=== PATIENT | male | born 1935 | race Caucasian/White ===

== ENCOUNTER 2022-01-19 23:58 | Emergency (ER) | payer OTHER ==
[~2022-01-19] VITALS: Ht 167.6 cm; Wt 63.3 kg
[2022-01-20] MEDS ORDERED: OXYMETAZOLINE HCL 0.05 % NASAL SPRAY 15ML EACHNOSTRI ONE (00:15)
[2022-01-20 01:03] LABS: Basophils # (auto) 0.1 10 ^3/uL (0-0.2); Basophils % (auto) 1.1 % (0.0-2.0); Eosinophils # (auto) 0.2 10 ^3/uL (0-0.8); Hematocrit 46.1 % (41.0-53.0); Hemoglobin 15.7 g/dL (13.5-17.5); Lymphocytes # (auto) 0.4 10 ^3/uL (0.4-5.4); Lymphocytes % (auto) 8.2 % (10.0-50.0); Mean Corpuscular Volume 96.9 fL (80.0-100.0); Monocytes # (auto) 0.7 10 ^3/uL (0-1.3); Monocytes % (auto) 13.6 % (0.0-12.0); Neutrophils % (auto) 74.1 % (37.0-80.0); Nucleated Red Blood Cells % 0.1 %; Red Blood Cells 4.75 10^6/uL (4.5-5.90); White Blood Cell 5.4 10^3/uL (4.4-10.8)
[2022-01-20 01:21] LABS: Albumin 3.4 g/dL (3.4-5.0); Calcium 9.2 mg/dL (8.5-10.1)
[2022-01-20 01:24] LABS: BUN/Creatinine Ratio 19.5
[2022-01-20 01:27] LABS: Bilirubin, Total 0.5 mg/dL (0.2-1.0); Total Protein 7.1 g/dL (6.4-8.2)
[2022-01-20 02:43] LABS: INR 4.17 (0.9-1.15)
[2022-01-20 05:21] VITALS: BP 118/74
== END 2022-01-20 05:42 | disposition home or self-care (01) ==
LOC: EDUNIT# 23:58 → EDSEX 23:58 → EDBD 23:58 → ER 23:58
DX: R04.0 Epistaxis (principal); R79.0 Abnormal level of blood mineral; I10 Essential (primary) hypertension
CPT/HCPCS: 36415; 80053; 85025; 85610

== ENCOUNTER 2022-02-07 16:42 | Emergency (ER) | payer OTHER ==
[~2022-02-07] VITALS: Ht 160 cm; Wt 63.6 kg
[2022-02-07 18:28] LABS: Urine Bacteria NONE SEEN /hpf (None Seen); Urine Blood Negative /uL (Negative); Urine Hyaline Cast FEW /lpf (0 - 2); Urine Specific Gravity 1.008 (1.001-1.035); Urine WBC 1 /hpf (0 - 3)
[2022-02-07 19:42] LABS: Basophils # (auto) 0.1 10 ^3/uL (0-0.2); Basophils % (auto) 0.6 % (0.0-2.0); Eosinophils # (auto) 0.1 10 ^3/uL (0-0.8); Eosinophils % (auto) 1.6 % (0.0-7.0); Hematocrit 47.5 % (41.0-53.0); Hemoglobin 15.2 g/dL (13.5-17.5); Lymphocytes # (auto) 0.7 10 ^3/uL (0.4-5.4); Lymphocytes % (auto) 9.2 % (10.0-50.0); Mean Corpuscular Hemoglobin 31.6 pg (28.0-32.0); Mean Corpuscular Volume 98.9 fL (80.0-100.0); Monocytes # (auto) 0.9 10 ^3/uL (0-1.3); Monocytes % (auto) 11.5 % (0.0-12.0); Neutrophils # (auto) 6.2 10 ^3/uL (1.6-8.6); Neutrophils % (auto) 77.1 % (37.0-80.0); Nucleated Red Blood Cells % 0.1 %; Red Blood Cells 4.81 10^6/uL (4.5-5.90); Red Cell Distribution Width 14.5 % (11.8-14.3)
[2022-02-07 19:56] LABS: Albumin 3.5 g/dL (3.4-5.0); BUN/Creatinine Ratio 17.7; Calcium 9.2 mg/dL (8.5-10.1); Magnesium 2.3 mg/dL (1.6-2.6); Potassium 3.8 mmol/L (3.5-5.1)
[2022-02-07 19:59] LABS: Bilirubin, Total 0.7 mg/dL (0.2-1.0); Total Protein 7.1 g/dL (6.4-8.2)
[2022-02-08 05:55] VITALS: BP 126/72
== END 2022-02-08 05:55 | disposition home or self-care (01) ==
LOC: EDSEX 16:42 → EDBD 16:42 → EDSEX 16:44 → ER 16:44
DX: R06.02 Shortness of breath (principal); I10 Essential (primary) hypertension
CPT/HCPCS: 36415; 71045; 80053; 81001; 83735; 83880; 84484; 85025; 85379; 93005

== ENCOUNTER 2023-07-12 11:50 | Emergency (ER) | payer OTHER ==
[~2023-07-12] VITALS: Ht 170.2 cm; Wt 78.0 kg
[2023-07-12] MEDS ORDERED: ONDANSETRON HCL 4 MG/2 ML VIAL IV ONE (13:00)
[2023-07-12] MEDS ORDERED: MORPHINE SULFATE 4 MG/ML SYR/VIAL IV ONE (13:00)
[2023-07-12 17:57] VITALS: BP 126/72; TEMP 98
[2023-07-12 18:20] VITALS: PULSE 98; RESP 16; O2SAT 97
== END 2023-07-12 17:04 | disposition short-term general hospital (02) ==
LOC: EDBD 11:50 → ER 11:50
DX: S82.201A Unspecified fracture of shaft of right tibia, initial encounter for closed fracture (principal); M25.461 Effusion, right knee; I10 Essential (primary) hypertension; I48.91 Unspecified atrial fibrillation; Z95.0 Presence of cardiac pacemaker; Z88.2 Allergy status to sulfonamides; W18.39XA Other fall on same level, initial encounter; Y93.89 Activity, other specified; Y92.89 Other specified places as the place of occurrence of the external cause; Y99.8 Other external cause status
CPT/HCPCS: 73090; 73552; 73590; 73630; 73700; 96374; 96375; 99285; J2270; J2405

== ENCOUNTER 2024-06-25 17:17 | Inpatient (IN) | payer OTHER, MEDICAID ==
[~2024-06-25] VITALS: Ht 175.3 cm; Wt 59.3 kg
[2024-06-25 17:45] VITALS: PULSE 98; RESP 18; O2SAT 95
--- NOTE | 2024-06-25 18:56 | ED.PDOC ---
History of Present Illness HPI Comments 88 y/o F is BIBA for c/o right shoulder pain and left forearm cut wound s/p mechanical fall, today. Patient endorses on tripping falling onto her right shoulder from a ground level height, without any prior symptoms or additional following injuries. She denies any headache, weakness, numbness, tingling, or o ther associated symptoms or modifiers at this time. Chief Complaint: Fall Injury Time Seen by MD: 18:30 Primary Care Provider: UNKNOWN Reviewed Notes: Nurses Notes, Medications, Allergies Allergies: Uncoded Allergies: SULFA (Allergy, Unknown, 05/21/14) Information Source: Patient, Emergency Med Personnel Mode of Arrival: EMS Severity: Moderate Timing: Hours Duration: Since onset Prehospital treatment: 12 Lead EKG, Travel Pt, Pain Meds (fentanyl), Other (zofran ) Past Medical History PAST MEDICAL HISTORY: AFIB, HTN Surgical History: Pacemaker Family History Family History: Reviewed,noncontributory to illness Social History Smoker: Non-Smoker Alcohol: Denies ETOH Use Drugs: Denies Drug Use Lives In: Home Musculoskeletal: reports: others (right shoulder pain ) Integumetry: reports: wounds (cut wound left forearm ) All Other Systems: Reviewed and Negative (negative unless otherwise stated above or in HPI) Physical Exam General Appearance: No Apparent Distress, Normal HEENT: Normal ENT Inspection, Pharynx Normal, TMs Normal Neck: Full Range of Motion, Non-Tender, Normal, Normal Inspection Respiratory: Chest Non-Tender, Lungs Clear, No Accessory Muscle Use, No Respiratory Distress, Normal Breath Sounds Cardiovascular: No Edema, No JVD, No Murmur, No Gallop, Normal Peripheral Pulses, Regular Rate/Rhythm Breast Exam: Deferred Gastrointestinal: No Organomegaly, Non Tender, No Pulsatile Mass, Normal Bowel Sounds, Soft Genitalia: Deferred Pelvic: Deferred Rectal: Deferred Extremities: Decreased range of motion (right shoulder ), No calf tenderness, Normal capillary refill, Normal inspection, No pedal edema, Tender (right shoulder) Musculoskeletal : Apperance: Normal Neurologic: Alert, fall intern II-XII nml as Tested, No Motor Deficits, Normal Affect, Normal Mood, No Sensory Deficits Cerebellar Function: Normal Reflexes: Normal Skin: Dry, Normal Color, Warm, Wounds (skin avulsion on left forearm ) Lymphatic: No Adenopathy Was a procedure done? Was a procedure done?: No Differential Dx Considerations may include: fractures, contusions, dislocation, sprain X-Ray, Labs, Meds, VS Vital Signs Date Time Temp Pulse Resp B/P (MAP) Pulse Ox O2 Delivery O2 Flow Rate FiO2 06/25/24 19:45 103 22 164/107 06/25/24 19:32 102 18 96 Room Air* 0 21 06/25/24 19:30 98.9 98 22 152/100 (117) 95 98.9 06/25/24 17:45 98 18 95 Room Air* 0 21 06/25/24 17:45 98.6 98 18 160/101 (120) 95 98.6 06/25/24 17:32 97.9 97 14 161/88 (112) 100 Lab Test 06/25/24 20:22 06/25/24 19:01 Range/Units Urine Color Colorless Yellow Urine Clarity Turbid H Clear Urine pH 5.5 5.0-9.0 Urine Specific [place] 1.013 1.001-1.035 Urine Protein Negative Negative Urine Ketones Negative Negative Urine Blood Trace H Negative /uL Urine Nitrite Negative Negative Urine Bilirubin Negative Negative Urine Urobilinogen Normal Negative mg/dL Urine Leukocyte Esterase 3+ Negative /uL Urine RBC 1 0 - 4 /hpf Urine WBC 4 0 - 5 /hpf Urine Squamous Epithelial Cells Few <5 /hpf Urine Bacteria Few H None Seen /hpf Urine Glucose Normal Normal mg/dL White Blood Count 12.5 H 4.4-10.8 10^3/uL Red Blood Count 4.46 4.0-5.20 10^6/uL Hemoglobin 14.7 12.2-16.2 g/dL Hematocrit 44.2 36.0-46.0 % Mean Corpuscular Volume 99.1 80.0-100.0 fL Mean Corpuscular Hemoglobin 33.0 H 28.0-32.0 pg Mean Corpuscular Hemoglobin Concent 33.3 32.0-36.0 g/dL Red Cell Distribution Width 13.3 11.8-14.3 % Platelet Count 200 140-450 10^3/uL Mean Platelet Volume 8.7 6.9-10.8 fL Neutrophils (%) (Auto) 82.4 H 37.0-80.0 % Lymphocytes (%) (Auto) 6.8 L 10.0-50.0 % Monocytes (%) (Auto) 9.5 0.0-12.0 % Eosinophils (%) (Auto) 0.9 0.0-7.0 % Basophils (%) (Auto) 0.4 0.0-2.0 % Neutrophils # (Auto) 10.3 H 1.6-8.6 10 ^3/uL Lymphocytes # (Auto) 0.9 0.4-5.4 10 ^3/uL Monocytes # (Auto) 1.2 0-1.3 10 ^3/uL Eosinophils # (Auto) 0.1 0-0.8 10 ^3/uL Basophils # (Auto) 0.1 0-0.2 10 ^3/uL Nucleated Red Blood Cells 0.0 % Sodium Level 140 136-145 mmol/L Potassium Level 3.9 3.5-5.1 mmol/L Chloride Level 109 H 98-107 mmol/L Carbon Dioxide Level 22 20-31 mmol/L Anion Gap 9 5-15 Blood Urea Nitrogen 16 9-23 mg/dL Creatinine 0.92 0.550-1.02 mg/dL Glomerular Filtration Rate Calc 60 >90 mL/min BUN/Creatinine Ratio 17.4 10.0-20.0 Serum Glucose 96 74-106 mg/dL Calcium Level 10.4 8.7-10.4 mg/dL Total Bilirubin 0.6 0.2-1.0 mg/dL Aspartate Amino Transferase (AST) 19 13-40 U/L Alanine Aminotransferase (ALT) < 9 7-40 U/L Alkaline Phosphatase 70 46-116 U/L Total Protein 6.8 5.7-8.2 g/dL Albumin 4.0 3.2-4.8 g/dL Current Medications Medications (Trade) Dose Ordered Sig/Efrain Route Start Time Stop Time Status Last Admin Morphine Sulfate 4 mg ONCE ONCE IV 06/25/24 19:45 06/25/24 19:46 DC 06/25/24 19:45 Ondansetron HCl (Zofran) 4 mg ONCE ONCE IV 06/25/24 19:45 06/25/24 19:46 DC 06/25/24 19:45 X-Ray, Labs, Meds, VS Comment This 88-year-old female presents secondary right shoulder pain status post fall. On my preliminary read the x-ray, did not see a fracture. Final read did not show fracture. However, the patient is complaining of severe pain. She was given morphine and Zofran. The patient workup was also significant for a UTI 4 she was given 1 g Rocephin. As she does not have an active fracture, I will discharge the patient home with a prescription for tylenol to take as needed for her shoulder pain. Time of 1ST Reevaluation: 19:00 Reevaluation 1ST: Unchanged Time of 2ND Reevaluation: 21:08 Reevaluation 2ND: Improved Reevaluation 3RD: Improved Patient Education/Counseling: Diagnosis, Treatment Family Education/Counseling: No Family Present Departure 1 Departure Time of Disposition: 21:08 Impression: Primary Impression: UTI (urinary tract infection) Additional Impression: Right shoulder pain Disposition: 01 HOME / SELF CARE / HOMELESS Condition: Good Discharged With: Self Critical Care Note Critical Care Time?: No Stability Stability form required: No Heart Score Heart Score: Heart Score Response (Comments) Value History N/A 0 EKG N/A 0 Age N/A 0 Risk Factors N/A 0 Troponin N/A 0 Total 0 I personally scribed for RONNY TY MD ([email or web address]) on 06/25/24 at 18:56. Electronically submitted by Luis Eduardo Rayo ([email or web address]). RONNY TY MD Jun 25, 2024 18:56
[2024-06-25 19:16] LABS: Basophils # (auto) 0.1 10 ^3/uL (0-0.2); Basophils % (auto) 0.4 % (0.0-2.0); Eosinophils # (auto) 0.1 10 ^3/uL (0-0.8); Eosinophils % (auto) 0.9 % (0.0-7.0); Hematocrit 44.2 % (36.0-46.0); Hemoglobin 14.7 g/dL (12.2-16.2); Lymphocytes # (auto) 0.9 10 ^3/uL (0.4-5.4); Lymphocytes % (auto) 6.8 % (10.0-50.0); Mean Corpuscular Hgb Conc. 33.3 g/dL (32.0-36.0); Mean Corpuscular Volume 99.1 fL (80.0-100.0); Monocytes # (auto) 1.2 10 ^3/uL (0-1.3); Monocytes % (auto) 9.5 % (0.0-12.0); Neutrophils # (auto) 10.3 10 ^3/uL (1.6-8.6); Neutrophils % (auto) 82.4 % (37.0-80.0); Platelet Count (auto) 200 10^3/uL (140-450); Red Blood Cells 4.46 10^6/uL (4.0-5.20); Red Cell Distribution Width 13.3 % (11.8-14.3); White Blood Cell 12.5 10^3/uL (4.4-10.8)
[2024-06-25 19:30] LABS: Alkaline Phosphatase 70 U/L (46-116); Anion Gap 9 (5-15); Aspartate Aminotransferase 19 U/L (13-40); BUN/Creatinine Ratio 17.4 (10.0-20.0); Bilirubin, Total 0.6 mg/dL (0.2-1.0); Blood Urea Nitrogen 16 mg/dL (9-23); Calcium 10.4 mg/dL (8.7-10.4); Carbon Dioxide 22 mmol/L (20-31); Glucose 96 mg/dL (74-106); Potassium 3.9 mmol/L (3.5-5.1); Sodium 140 mmol/L (136-145); Total Protein 6.8 g/dL (5.7-8.2)
[2024-06-25 19:32] VITALS: PULSE 102; RESP 18; O2SAT 96
[2024-06-25 19:41] LABS: Alanine Aminotransferase < 9 U/L (7-40); Chloride 109 mmol/L (98-107)
[2024-06-25] MEDS: MORPHINE SULFATE 4 MG/ML SYR/VIAL IV ONE (19:45)
[2024-06-25] MEDS: ONDANSETRON HCL 4 MG/2 ML VIAL IV ONE ×2 (19:45→23:28)
[2024-06-25 20:43] LABS: Urine Bacteria FEW /hpf (None Seen); Urine Blood TRACE /uL (Negative); Urine Clarity Turbid (Clear); Urine Color Colorless (Yellow); Urine Protein, UAD Negative (Negative); Urine Specific Gravity 1.013 (1.001-1.035); Urine Squamous Epithelial Cell FEW /hpf (<5); Urine Urobilinogen Normal (Negative); Urine WBC 4 /hpf (0 - 5); Urine pH 5.5 (5.0-9.0)
--- NOTE | 2024-06-25 20:48 | DVH ---
CLINICAL INDICATION: Right shoulder pain TECHNIQUE: XY R SHOULDER 2+ VIEW XRAY Comparison: None FINDINGS/IMPRESSION: : Bony demineralization. No definite acute fracture. Mild acromioclavicular and glenohumeral joint arthrosis. Visualized portions of the right lung are clear. Partially imaged right-sided multi lead pacemaker. Overlying soft tissues are intact
[2024-06-25] MEDS ORDERED: HEPARIN SODIUM (PORCINE) 5000 UNITS/ML 1ML VIAL IV ONE (21:00)
[2024-06-25] MEDS: cefTRIAXone 1GM/50ML D5W 50 ML IV ONE (22:29)
[2024-06-25] MEDS: HYDROmorphone HCL 2 MG/ML VL/or syr IV ONE (23:26)
[2024-06-26 01:00] VITALS: BP 131/81; PULSE 101; RESP 18; TEMP 98.3; O2SAT 92
[2024-06-26] MEDS: HALOPERIDOL LACTATE 5 MG/ML INJ VIAL IM ONE (01:29)
[2024-06-26] MEDS ORDERED: NITROGLYCERIN 0.4 MG SL TAB SL PRN (04:00)
[2024-06-26] MEDS ORDERED: MORPHINE SULFATE INJ 2 MG/ml SYRG IV PRN (04:00)
[2024-06-26] MEDS ORDERED: hydrALAZINE HCL 20 MG/ML VL IV PRN (04:00)
--- NOTE | 2024-06-26 04:08 | DVHHP2 ---
History of Present Illness Reason for Visit: Generalized weakness History of Present Illness The patient is a 88 years old female with past medical history of AFib and hypertension who presented to [facility] ED for evaluation of mechanical fall. Patient reports feeling weakness, tripped and fall landing on her right shoulder with sustained right shoulder pain. Patient was seen and evaluated in the ED, laboratory data shows WBC 12.5, platelets 200, sodium 140, potassium 3.9, BUN 16, creatinine 0.92, GFR 60, glucose 96, urinalysis positive for urinary tract infection. Patient was started IV antibiotic regimen Rocephin, please see medication orders section in the computer. On my assessment, patient denied chest pain, no headache, no dizziness, no loss of consciousness, no diaphoresis, no nausea, no vomiting, no fever, no chills. Patient was admitted for further evaluation and medical management. Past Medical History AFIB, HTN Past Surgical History Pacemaker Family History Reviewed, noncontributory to the management of this case. Past Social History The patient lives at home, denies smoking, alcohol or illicit drugs abuse. Review of Systems Constitutional: Yes: Weakness; No: Fever, Chills, Sweats, Malaise, Other Eyes: No: Pain, Vision change, Conjunctivae inflammation, Eyelid inflammation, Other, Redness ENT: No: Ear pain, Ear discharge, Nose pain, Nose discharge, Nose congestion, Mouth pain, Mouth swelling, Throat pain, Throat swelling, Other Respiratory: No: Cough, Dry, Shortness of breath, SOB with excertion, Wheezing, Hemoptysis, Pleuritic Pain, Sputum, Wheezing, Other Cardiovascular: No: Chest Pain, Palpitations, Orthopnea, Paroxysmal Noc. Dyspnea, Edema, Lt Headedness, Other Gastrointestinal: No: Nausea, Vomiting, Abdominal Pain, Diarrhea, Constipation, Melena, Hematochezia, Other Genitourinary: No Dysuria, No Frequency, No Incontinence, No Hematuria, No Retention, No Other Musculoskeletal: other (right shoulder pain. ); No: neck pain, shoulder pain, arm pain, back pain, hand pain, leg pain, foot pain Skin: Other (Left forearm wound); No: Rash, Lesions, Jaundice, Bruising Neurological: No: Weakness, Numbness, Incoordination, Change in speech, Confusion, Seizures, Other Allergies: Uncoded Allergies: SULFA (Allergy, Unknown, 05/21/14) Exam Vital Signs Vital Signs Date Time Temp Pulse Resp B/P (MAP) Pulse Ox O2 Delivery O2 Flow Rate FiO2 06/26/24 03:30 98.2 86 13 140/28 (65) 96 98.2 06/25/24 19:32 Room Air* 0 21 General Appearance: Alert, Oriented X3, Cooperative, No acute distress HEENT: Atraumatic, PERRLA, EOMI, Mucous membr. moist/pink Respiratory: Clear to auscultation, Normal air movement Cardiovascular: Regular rate, Normal S1, Normal S2, No murmurs Abdominal: Normal bowel sounds, Soft, No tenderness, No hepatospenomegaly, No masses Extremities: No clubbing, No cyanosis, No edema, Normal pulses, No tenderness/swelling Skin: No rashes, No breakdown, No significant lesion Neuro: Normal speech, Normal tone, Sensation intact, Cranial nerves 3-12 NL, Reflexes 2+, Other (Generalized weakness) Psych/Mental Status: Mental status NL, Mood NL Labs/Xrays Labs Test 06/25/24 20:22 06/25/24 19:01 Range/Units Urine Color Colorless Yellow Urine Clarity Turbid H Clear Urine pH 5.5 5.0-9.0 Urine Specific [place] 1.013 1.001-1.035 Urine Protein Negative Negative Urine Ketones Negative Negative Urine Blood Trace H Negative /uL Urine Nitrite Negative Negative Urine Bilirubin Negative Negative Urine Urobilinogen Normal Negative mg/dL Urine Leukocyte Esterase 3+ Negative /uL Urine RBC 1 0 - 4 /hpf Urine WBC 4 0 - 5 /hpf Urine Squamous Epithelial Cells Few <5 /hpf Urine Bacteria Few H None Seen /hpf Urine Glucose Normal Normal mg/dL White Blood Count 12.5 H 4.4-10.8 10^3/uL Red Blood Count 4.46 4.0-5.20 10^6/uL Hemoglobin 14.7 12.2-16.2 g/dL Hematocrit 44.2 36.0-46.0 % Mean Corpuscular Volume 99.1 80.0-100.0 fL Mean Corpuscular Hemoglobin 33.0 H 28.0-32.0 pg Mean Corpuscular Hemoglobin Concent 33.3 32.0-36.0 g/dL Red Cell Distribution Width 13.3 11.8-14.3 % Platelet Count 200 140-450 10^3/uL Mean Platelet Volume 8.7 6.9-10.8 fL Neutrophils (%) (Auto) 82.4 H 37.0-80.0 % Lymphocytes (%) (Auto) 6.8 L 10.0-50.0 % Monocytes (%) (Auto) 9.5 0.0-12.0 % Eosinophils (%) (Auto) 0.9 0.0-7.0 % Basophils (%) (Auto) 0.4 0.0-2.0 % Neutrophils # (Auto) 10.3 H 1.6-8.6 10 ^3/uL Lymphocytes # (Auto) 0.9 0.4-5.4 10 ^3/uL Monocytes # (Auto) 1.2 0-1.3 10 ^3/uL Eosinophils # (Auto) 0.1 0-0.8 10 ^3/uL Basophils # (Auto) 0.1 0-0.2 10 ^3/uL Nucleated Red Blood Cells 0.0 % Sodium Level 140 136-145 mmol/L Potassium Level 3.9 3.5-5.1 mmol/L Chloride Level 109 H 98-107 mmol/L Carbon Dioxide Level 22 20-31 mmol/L Anion Gap 9 5-15 Blood Urea Nitrogen 16 9-23 mg/dL Creatinine 0.92 0.550-1.02 mg/dL Glomerular Filtration Rate Calc 60 >90 mL/min BUN/Creatinine Ratio 17.4 10.0-20.0 Serum Glucose 96 74-106 mg/dL Calcium Level 10.4 8.7-10.4 mg/dL Total Bilirubin 0.6 0.2-1.0 mg/dL Aspartate Amino Transferase (AST) 19 13-40 U/L Alanine Aminotransferase (ALT) < 9 7-40 U/L Alkaline Phosphatase 70 46-116 U/L Total Protein 6.8 5.7-8.2 g/dL Albumin 4.0 3.2-4.8 g/dL PATIENT: ANDREA DEMARCO ACCT: [id number] UNIT: [id number] : 1935 LOC: ER ROOM / BED: / AGE / SEX: 88 / F ADM STATUS: REG ER SERVICE 1862 ORDERING PHYSICIAN: RONNY TY MD PROCEDURE(s): RSHD2 - R SHOULDER 2+ VIEW XRAY REASON: pain ORDER NUMBER(s): [id number], ACCESSION NUMBER(s): [id number] CLINICAL INDICATION: Right shoulder pain TECHNIQUE: XY R SHOULDER 2+ VIEW XRAY Comparison: None FINDINGS/IMPRESSION: : Bony demineralization. No definite acute fracture. Mild acromioclavicular and glenohumeral joint arthrosis. Visualized portions of the right lung are clear. Partially imaged right-sided multi lead pacemaker. Overlying soft tissues are intact Assessment/Plan Assessment/Plan Fall with injury UTI (urinary tract infection) Right shoulder pain Leukocytosis, unspecified Generalized weakness Plan 1. Admit to telemetry unit 2. Breathing treatment 3. Pain control management 4. IV antibiotic management 5. Management of fluids and electrolytes 6. Consultation for hospitalist 7. Diagnostic test right shoulder x-ray 8. DVT prophylaxis-on aspirin 9. Repeat labs CBC, CMP in a.m. 10. Home medication reviewed and reconciled 11. Continue with current medical management 12. Treatment plan discussed with patient and RN. Patient verbalized understanding. Plan discussed with: Patient, Other (RN) My Orders Orders - JULIETA ACEVEDO DNP Procedure Category Date Status Time Ceftriaxone Ivpb PHA 06/26/24 Transmitted Rocephin 09:00 Famotidine Injection PHA 06/26/24 Transmitted (Pepcid Injection) 10:00 Aspirin Tablet PHA 06/26/24 Transmitted 10:00 Urine Bacterial HARPER 06/26/24 Transmitted Culture 04:00 Carvedilol Tablet PHA 06/26/24 Transmitted (Coreg Tablet) 10:00 Hydralazine Injection PHA 06/26/24 Transmitted (Apresoline Inject 04:00 Admit ADMIT 06/26/24 Transmitted 04:00 Allergies CARLOS 06/26/24 Transmitted 04:00 Code Status CODE 06/26/24 Transmitted 04:00 Sodium Chloride Lock PHA 06/26/24 Transmitted (Saline Lock Ns) 06:00 Oxygen Per Hour RT 06/26/24 Transmitted 04:00 Hydrocodone-Acet PHA 06/26/24 Transmitted 5/325mg Tab (Melissa 04:00 Ondansetron Hcl PHA 06/26/24 Transmitted (Zofran) 04:00 Docusate Sodium PHA 06/26/24 Transmitted Capsule (Colace 04:00 Fall Risk Precautions CARLOS 06/26/[address] 04:00 Complete Blood Count LAB 06/27/24 Verified 04:00 Comprehensive LAB 06/27/24 Verified Metabolic Panel 04:00 Cardiac DIET 06/26/24 Transmitted Diet-2gna,Lofat,Lochol Breakfast Condition: Serious CARLOS 06/26/24 Transmitted 04:00 Acetaminophen Tablet [facility] 06/26/24 Transmitted (Tylenol Tablet) 04:00 Morphine Sulfate [facility] 06/26/24 Transmitted Injection 04:00 Sequential [facility] 06/26/24 Transmitted Compression Device Nitroglycerin [facility] 06/26/24 Transmitted Sublingual (Ntrostat 04:00 Morphine Sulfate [facility] 06/26/24 Transmitted Injection 04:00 Notify Of Changes [facility] 06/26/24 Transmitted From Base 04:00 Secret Service Agent For [facility] 06/26/24 Transmitted 24 Hours 04:00 Emergency Dysrhythmia [facility] 06/26/24 Transmitted Protocol 04:00 Rhythm Strips Once [facility] 06/26/24 Transmitted Every Shift 04:00 Oxygen By Nasal RT 06/26/24 Transmitted Cannula 04:00 Problem List: (1) Fall with injury (2) Right shoulder pain (3) UTI (urinary tract infection) (4) Leukocytosis, unspecified (5) Generalized weakness Date of Service: Jun 26, 2024 Billing Provider: JULIETA ACEVEDO DNP Common Visit Codes: [id number] INP/OBS CARE (HIGH) JULIETA ACEVEDO DNP Jun 26, 2024 04:08
[2024-06-26] MEDS: SODIUM CHLOR 0.9% PF (SALINE LOCK) 10ML VIAL/SYR IV SCH (05:15)
[2024-06-26] MEDS: ONDANSETRON HCL 4 MG/2 ML VIAL IV PRN (06:05)
[2024-06-26] MEDS: MORPHINE SULFATE INJ 2 MG/ml SYRG IV PRN (06:06)
[2024-06-26 08:20] VITALS: PULSE 82; RESP 14; O2SAT 98
[2024-06-26] MEDS: FAMOTIDINE (10MG/ML) 2ML VL IV SCH (09:36)
[2024-06-26] MEDS: cefTRIAXone 1GM/50ML D5W 50 ML IV SCH (09:36)
[2024-06-26] MEDS: CARVEDILOL 3.125 MG TAB PO SCH (09:37)
[2024-06-26] MEDS ORDERED: ASPirin 81 mg TAB PO SCH (10:00)
[2024-06-26 10:13] LABS: Basophils # (auto) 0 10 ^3/uL (0-0.2)
[2024-06-26 10:17] LABS: Potassium 4.6 mmol/L (3.5-5.1); Sodium 139 mmol/L (136-145)
[2024-06-26 10:19] LABS: Anion Gap 7 (5-15); Carbon Dioxide 24 mmol/L (20-31)
--- NOTE | 2024-06-26 10:23 | DVH ---
CHEST RADIOGRAPH Indication: s/p mechanical fall Technique: Single frontal view of the chest was obtained COMPARISON: CHEST XRAY 1 VIEW on DOS: 02/07/22, CXR1 on DOS: 02/07/22 FINDINGS: Right chest AICD is re-identified. There is new left basilar infiltrate partially obscuring the left hemidiaphragm. There is central peribronchial thickening, stable. No pneumothorax. The heart is uppe r limits of normal in size. The right humeral head is high-riding consistent with significant rotato r cuff tendinopathy. The bones are diffusely osteopenic. No acute displaced fractures are identified about the bony thorax. There is at least 1 old left rib fracture. IMPRESSION: 1. New left basilar pneumonia. 2. Chronic central peribronchial thickening re-identified.
[2024-06-26 10:24] LABS: BUN/Creatinine Ratio 13.5 (10.0-20.0); Basophils % (auto) 0.3 % (0.0-2.0); Blood Urea Nitrogen 13 mg/dL (9-23); Eosinophils # (auto) 0.1 10 ^3/uL (0-0.8); Eosinophils % (auto) 0.9 % (0.0-7.0); Glucose 87 mg/dL (74-106); Hematocrit 44.7 % (36.0-46.0); Lymphocytes # (auto) 0.8 10 ^3/uL (0.4-5.4); Lymphocytes % (auto) 8.3 % (10.0-50.0); Mean Corpuscular Hemoglobin 32.9 pg (28.0-32.0); Mean Corpuscular Hgb Conc. 31.4 g/dL (32.0-36.0); Monocytes # (auto) 1.4 10 ^3/uL (0-1.3); Neutrophils # (auto) 7.8 10 ^3/uL (1.6-8.6); Neutrophils % (auto) 76.5 % (37.0-80.0); Nucleated Red Blood Cells % 0.4 %; Platelet Count (auto) 191 10^3/uL (140-450); Red Blood Cells 4.26 10^6/uL (4.0-5.20); Red Cell Distribution Width 14.5 % (11.8-14.3); White Blood Cell 10.2 10^3/uL (4.4-10.8)
[2024-06-26 10:25] LABS: Calcium 10.5 mg/dL (8.7-10.4); Chloride 108 mmol/L (98-107)
--- NOTE | 2024-06-26 10:25 | DVH ---
EXAM: CT HEAD WITHOUT CONTRAST HISTORY: S/P mechanical fall COMPARISON: None TECHNIQUE: Axial images were obtained and reformatted in coronal and sagittal planes. All CT scans at this medical facility are performed using dose modulation techniques as appropriate t o a performed exam including the following: Automated exposure control was utilized; adjustment of th e MA and/or KV according to patient size; and use of iterative reconstruction technique. CT Dose: CTDI volume is 53.58 mGy. Dose-length product is 1270.42 mGy*cm FINDINGS: Supratentorial Region: No evidence for large acute territorial ischemia. No intracranial hemorrhage is noted. Confluent white matter hypoattenuating foci are noted bilaterally, which typically reflect chronic microvascular ischemic changes. Posterior Fossa: No acute abnormality. Brainstem: Unremarkable. Sellar/Suprasellar Region: Unremarkable. Ventricles, Cisterns, Sulci: Prominent reflecting volume loss. Orbits: Unremarkable. Paranasal Sinuses: Unremarkable. Mastoid Air Cells: Unremarkable. Vasculature: Intracranial arterial calcified plaque formation noted. Bones/Soft Tissues: No acute abnormality. Other: None. IMPRESSION: 1. No acute intracranial process. 2. Moderate global cortical atrophy and chronic microvascular ischemic changes.
--- NOTE | 2024-06-26 11:19 | DVHPNRES ---
Progress Note Date Seen: Jun 26, 2024 Resident Creating Document: CHI CHISHOLM RESIDENT Medical Necessity Reason Pt with a Central, PICC or Fol: Yes Subjective Review of Systems This is a 88 years old female with past medical history of AFib, dementia and hypertension who presented to [facility] ED for an evaluation after mechanical fall. Patient reports feeling weakness, tripped and fall landing on her right shoulder with sustained right shoulder pain. Patient was seen and examined on the bed side. She is alert, oriented X3. No active complaints Review of system could not be assessed as the patient has dementia Objective vital signs Vital Sign Date Time Temp Pulse Resp B/P (MAP) Pulse Ox O2 Delivery O2 Flow Rate FiO2 06/26/24 10:37 85 117/75 06/26/24 06:36 11 06/26/24 05:30 98.3 97 98.3 06/25/24 19:32 Room Air* 0 21 Total Intake and Output 06/25/24 06/25/24 06/26/24 15:00 23:00 07:00 Intake Total 50 ml Balance 50 ml medications Current Medications Medications Dose Ordered Sig/Efrain Route Start Time Stop Time Status Last Admin Dose Admin Ceftriaxone Sodium 50 ml @ 100 mls/hr DAILY@09 IV 06/26/24 09:00 06/26/24 09:36 100 MLS/HR Famotidine 20 mg DAILY IV 06/26/24 10:00 06/26/24 09:36 20 MG Hydralazine HCl 10 mg Q6HP PRN IV 06/26/24 04:00 Sodium Chloride 10 ml Q8HR IV 06/26/24 06:00 06/26/24 05:15 10 ML Acetaminophen/ Hydrocodone Bitart 1 tab Q4HP PRN PO 06/26/24 04:00 Ondansetron HCl 4 mg Q4HP PRN IV 06/26/24 04:00 06/26/24 06:05 4 MG Docusate Sodium 100 mg BIDPRN PRN PO 06/26/24 04:00 Acetaminophen 650 mg Q6HP PRN PO 06/26/24 04:00 Morphine Sulfate 2 mg Q4HPRN PRN IV 06/26/24 04:00 06/26/24 06:06 2 MG Nitroglycerin 0.4 mg Q5MINP PRN SL 06/26/24 04:00 Morphine Sulfate 2 mg Q30M PRN IV 06/26/24 04:00 Lisinopril 2.5 mg DAILY PO 06/27/24 10:00 Memantine 5 mg DAILY PO 06/27/24 10:00 Dabigatran 110 mg BID PO 06/26/24 22:00 UNV Azithromycin 250 ml @ 125 mls/hr DAILY IV 06/27/24 10:00 Examination Physical examination: General Appearance: Alert, Oriented X3, Cooperative, No acute distress HEENT: Atraumatic, PERRLA, EOMI, Mucous membrane moist/pink Respiratory: Clear to auscultation, Normal air movement Cardiovascular: Regular rate, Normal S1, Normal S2, No murmurs, no chest wall tenderness Abdominal: Normal bowel sounds, Soft, No tenderness, No hepatospenomegaly, No masses Extremities: No clubbing, No cyanosis, No edema, Normal pulses, No tenderness/swelling Skin: No rashes, No breakdown, No significant lesion Neuro: Bed bound, Normal speech, Strength at 5/5 X4 ext, Normal tone, Sensation intact, grossly intact cranial nerves. Psych/Mental Status: Mental status NL, Mood NL laboratory and microbiology Laboratory Tests 06/26/24 09:52 Test 06/26/24 09:52 Range/Units Serum Glucose 87 74-106 mg/dL Labs and/or images reviewed: Labs reviewed by me, Image(s) reviewed by me Problem List/Assessment/Plan Problem List/Assessment/Plan Assessment and plan: # Acute hypoxic respiratory failure likely due to community-acquired Gram- positive / Gram-negative pneumonia # S/P mechanical fall # S/P AICD on rt side - Chest xray demonstrated new left basilar pneumonia and chronic central peribronchial thickening - IV ceftriaxone 1 g daily and IV azithromycin 500 mg daily - CT head revealed no acute intracranial abnormality and moderate global cortical atrophy and chronic microvascular ischemic changes - Rt shoulder xray demonstrated Bony demineralization. No definite acute fracture. Mild acromioclavicular and glenohumeral joint arthrosis - Ordered for pacemaker interrogation. # Paroxysmal atrial fibrillation with secondary hypercoagulable state [id number] score >4 - Dabigatran 110 mg p.o. b.i.d. # Acute cystitis - U/A consistent with UTI - Ordered urine bacterial culture - IV ceftriaxone I gm daily. 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 daily # Hypertensive heart disease - Lisinopril 2.5 mg p.o. daily Diet: Cardiac PUD prophylaxis: Famotidine 20 mg IV daily DVT prophylaxis: Patient is on Pradaxa Disposition : Telemetry Plan discussed with: Patient, Other My Orders My Orders Orders - CHI CHISHOLM RESIDENT Procedure Category Date Status Time Head Without Contrast CT 06/26/24 Resulted 09:33 Chest Xray 1 View XY 06/26/24 Resulted 09:33 Vitamin D, 25-Hydroxy LAB 06/26/24 In Process 09:33 B-Type Natriuretic LAB 06/26/24 In Process Peptide 10:46 Lisinopril Tablet PHA 06/27/24 In Process (Zestril Tablet) 10:00 Memantine Tablet PHA 06/27/24 In Process (Namenda Tablet) 10:00 Dabigatran Capsule PHA 06/26/24 Logged (Pradaxa Capsule) 22:00 Mock Up Builder To Assess ORDERS 06/26/24 Transmitted Pacemaker 11:02 Azithromycin 500mg/ PHA 06/26/24 In Process 250ml (Zithromax 50 11:30 Azithromycin 500mg/ PHA 06/27/24 In Process 250ml (Zithromax 50 10:00 Date of Service: Jun 26, 2024 Billing Provider: CHUCHO SOLOMON MD Common Visit Codes: [id number] INP/OBS CARE(HIGH) CHI CHISHOLM RESIDENT Jun 26, 2024 11:19 CHUCHO SOLOMON MD Jun 26, 2024 20:09
[2024-06-26] MEDS: AZITHROMYCIN 500MG/ 250ML 250 ML IV ONE (11:47)
[2024-06-26] MEDS: HYDROcodone-ACET 5/325MG TAB PO PRN (14:35)
[2024-06-26 19:25] VITALS: PULSE 80; RESP 16; O2SAT 96
[2024-06-26 20:59] LABS: COVID19 ANTIGEN SOFIA FIA NEGATIVE (NEGATIVE); Rapid Influenza A Negative (Negative)
[2024-06-26 21:05] LABS: Rapid Influenza B Positive (Negative)
[2024-06-26 21:30] VITALS: PULSE 107; RESP 17; O2SAT 93
[2024-06-26] MEDS: DABIGATRAN 110 MG PO SCH (22:00)
[2024-06-26 23:35] VITALS: BP 131/81; PULSE 101; RESP 18; TEMP 98.3; O2SAT 92
[2024-06-27] VITALS (8 sets, daily range): BP systolic 113–138; BP diastolic 77–105; PULSE 70–154; RESP 16–19; TEMP 97.5–98.3; O2SAT 92–98
[2024-06-27 09:25] LABS: Basophils # (auto) 0.1 10 ^3/uL (0-0.2); Basophils % (auto) 0.6 % (0.0-2.0); Eosinophils # (auto) 0.1 10 ^3/uL (0-0.8); Eosinophils % (auto) 0.6 % (0.0-7.0); Hematocrit 44.8 % (36.0-46.0); Lymphocytes # (auto) 0.5 10 ^3/uL (0.4-5.4); Lymphocytes % (auto) 4.1 % (10.0-50.0); Mean Corpuscular Hemoglobin 32.7 pg (28.0-32.0); Mean Corpuscular Hgb Conc. 33.5 g/dL (32.0-36.0); Mean Corpuscular Volume 97.6 fL (80.0-100.0); Monocytes % (auto) 8.2 % (0.0-12.0); Neutrophils # (auto) 10.6 10 ^3/uL (1.6-8.6); Neutrophils % (auto) 86.5 % (37.0-80.0); Nucleated Red Blood Cells % 0.1 %; Platelet Count (auto) 222 10^3/uL (140-450); Red Cell Distribution Width 12.7 % (11.8-14.3); White Blood Cell 12.3 10^3/uL (4.4-10.8)
[2024-06-27 09:32] LABS: Albumin 4.3 g/dL (3.2-4.8); Alkaline Phosphatase 80 U/L (46-116); Anion Gap 8 (5-15); Aspartate Aminotransferase 19 U/L (13-40); BUN/Creatinine Ratio 14.9 (10.0-20.0); Blood Urea Nitrogen 14 mg/dL (9-23); Carbon Dioxide 24 mmol/L (20-31); Chloride 105 mmol/L (98-107); Potassium 4.2 mmol/L (3.5-5.1); Sodium 137 mmol/L (136-145)
[2024-06-27 09:33] LABS: Total Protein 7.1 g/dL (5.7-8.2)
[2024-06-27 09:39] LABS: INR 1.06 (0.9-1.15); Prothrombin Time 11.2 sec (9.3-11.8)
[2024-06-27] MEDS ORDERED: OSELTAMIVIR 75 MG CAP PO SCH (10:00)
[2024-06-27 10:01] LABS: Alanine Aminotransferase < 9 U/L (7-40); Calcium 10.9 mg/dL (8.7-10.4); Glucose 125 mg/dL (74-106)
[2024-06-27] MEDS: DOCUSATE SOD 100 MG CAP PO PRN (10:09)
[2024-06-27] MEDS: OSELTAMIVIR 30 MG CAP PO SCH (10:10)
[2024-06-27] MEDS: MEMANTINE HCL 5 MG TAB PO SCH (10:10)
[2024-06-27] MEDS: LISINOPRIL 5 MG TAB PO SCH (10:10)
[2024-06-27] MEDS: AZITHROMYCIN 500MG/ 250ML 250 ML IV SCH (10:10)
[2024-06-27] MEDS ORDERED: MEMA1TAB3 PO (12:25)
[2024-06-27] MEDS ORDERED: FURO20TA3 PO (12:25)
[2024-06-27] MEDS ORDERED: GABA-1308 PO (12:25)
[2024-06-27] MEDS ORDERED: DABI110C2 PO (12:25)
[2024-06-27] MEDS ORDERED: MEGE40TA4 PO (12:25)
[2024-06-27] MEDS ORDERED: LISI2.5T47 PO (12:26)
--- NOTE | 2024-06-27 13:40 | DVHINCON2 ---
Date Seen: Jun 27, 2024 Referring Physician MD Jaimie Reason for Consultation Possible PPM with high rate History of Present Illness This is an 88-year-old female who presented to the emergency room via EMS with a chief complaint of mechanical fall injury. At time of assessment the patient was found A&O x2. Information obtained from records which indicate the patient experienced a mechanical fall injury sustaining a right shoulder injury and left forearm skin tears. There has been no complains of chest pain, palpitations, diaphoresis, shortness of breath, or syncopal events. Cardiology consulted in the setting of tachycardia. She underwent a 12 lead electrocardiogram at bedside revealing an atrioventricular paced rhythm with underlying sinus tachycardia in the 120s bpm. Significant medical history includes right upper chest BiV-ICD ([employer] [employer]), paroxysmal atrial fibrillation on Pradaxa therapy, hypertension, and dementia. Past Medical History Past medical history reviewed. No other significant than mentioned above. Past Surgical History BiV-ICD, [employer] [employer] Family History: Alzheimer's disease Family History Unable to obtain family history at this time. Social History Unable to obtain social history at this time. Allergies: Coded Allergies: Sulfa Antibiotics (Verified Allergy, Unknown, 06/27/24) Home Meds Reported Medications Lisinopril (Lisinopril) 2.5 Mg Tab, 2.5 MG PO DAILY for 30 Days, MG 06/27/24 Furosemide (Furosemide) 20 Mg Tab, 20 MG PO DAILY for 30 Days, MG 06/27/24 Dabigatran Etexilate Mesylate (Dabigatran Etexilate) 110 Mg Cap, 110 MG PO BID, CAP 06/27/24 Gabapentin (Gabapentin) 100 Mg Cap, 100 MG PO BID for 30 Days, MG 06/27/24 Memantine Hydrochloride (Memantine HCl) 5 Mg Tab, 5 MG PO BID, TAB 06/27/24 Megestrol Acetate (Megestrol Acetate) 40 Mg Tab, 40 MG PO BID 06/27/24 Home Meds Home medications reviewed. Current Medications Current Medications Medications (Trade) Dose Ordered Sig/Efrain Route PRN Reason Start Time Stop Time Status Last Admin Lisinopril (Zestril Tablet) 2.5 mg DAILY PO 06/27/24 10:00 06/27/24 10:10 Memantine (Namenda Tablet) 5 mg DAILY PO 06/27/24 10:00 06/27/24 10:10 Patient Own Medication 110 BID PO 06/26/24 22:00 Azithromycin 250 ml @ 125 mls/hr DAILY IV 06/27/24 10:00 06/27/24 10:10 Oseltamivir Phosphate (Tamiflu 75MG Capsule) 75 mg Q12HR PO 06/27/24 10:00 06/27/24 08:39 DC Oseltamivir Phosphate (Tamiflu 30MG Capsule) 30 mg Q12HR PO 06/27/24 10:00 07/01/24 22:01 06/27/24 10:10 Review of Systems Constitutional: No symptom reported Ears, Nose, & Throat: No symptom reported Eyes: No symptom reported Neurological: No symptoms reported Pulmonary/Respiratory: No symptom reported Cardiovascular: No symptom reported Gastrointestinal: No symptom reported Genitourinary: No symptom reported Musculoskeletal: Right shoulder pain Skin: No symptom reported Psychiatric: No symptom reported Endocrine: No symptom reported Hemotologic/Lymphatic: Left forearm skin tears Vital Signs Vital Signs Date Time Temp Pulse Resp B/P (MAP) Pulse Ox O2 Delivery O2 Flow Rate FiO2 06/27/24 13:00 97.5 116 16 138/88 (105) 98 97.5 06/27/24 08:00 Nasal Cannula* 2 28 Physical Exam General Appearance: Cooperative. A&O x 2. Obese. In no acute distress Head Exam: Normal inspection Neck Exam: Normal inspection. Non-tender. Normal alignment Pulmonary/Respiratory: Chest non-tender. Clear bilateral breath sounds Cardiovascular/Chest: Regular rate and rhythm. S1, S2. AV paced rhythm with underlined sinus tachycardia. No murmurs. No JVD. Peripheral Pulses: 2+ Radial (R). 2+ Radial (L). 2+ Pedal (R). 2+ Pedal (L) Abdominal Exam: Normal bowel sounds. Soft. Ankle Exam: Negative ankle edema Lower extremities: Negative lower extremity edema Neuro/Mental Status: A&O x2. Alert but confused Thoughts/Psych: Normal thought pattern. Cooperative Appearance: In no acute distress Skin Exam: See wound care pictures Labs/Diagnostic Data Labs Test 06/27/24 08:50 06/26/24 20:03 06/26/24 09:52 06/25/24 20:22 Range/Units White Blood Count 12.3 H 4.4-10.8 10^3/uL Red Blood Count 4.60 4.0-5.20 10^6/uL Hemoglobin 15.0 12.2-16.2 g/dL Hematocrit 44.8 36.0-46.0 % Mean Corpuscular Volume 97.6 # 80.0-100.0 fL Mean Corpuscular Hemoglobin 32.7 H 28.0-32.0 pg Mean Corpuscular Hemoglobin Concent 33.5 32.0-36.0 g/dL Red Cell Distribution Width 12.7 11.8-14.3 % Platelet Count 222 140-450 10^3/uL Mean Platelet Volume 9.4 6.9-10.8 fL Neutrophils (%) (Auto) 86.5 H 37.0-80.0 % Lymphocytes (%) (Auto) 4.1 L 10.0-50.0 % Monocytes (%) (Auto) 8.2 0.0-12.0 % Eosinophils (%) (Auto) 0.6 0.0-7.0 % Basophils (%) (Auto) 0.6 0.0-2.0 % Neutrophils # (Auto) 10.6 H 1.6-8.6 10 ^3/uL Lymphocytes # (Auto) 0.5 0.4-5.4 10 ^3/uL Monocytes # (Auto) 1.0 0-1.3 10 ^3/uL Eosinophils # (Auto) 0.1 0-0.8 10 ^3/uL Basophils # (Auto) 0.1 0-0.2 10 ^3/uL Nucleated Red Blood Cells 0.1 % Prothrombin Time 11.2 9.3-11.8 sec Prothrombin Time INR 1.06 0.9-1.15 Sodium Level 137 136-145 mmol/L Potassium Level 4.2 3.5-5.1 mmol/L Chloride Level 105 98-107 mmol/L Carbon Dioxide Level 24 20-31 mmol/L Anion Gap 8 5-15 Blood Urea Nitrogen 14 9-23 mg/dL Creatinine 0.94 0.550-1.02 mg/dL Glomerular Filtration Rate Calc 58 >90 mL/min BUN/Creatinine Ratio 14.9 10.0-20.0 Serum Glucose 125 H 74-106 mg/dL Calcium Level 10.9 H 8.7-10.4 mg/dL Total Bilirubin 1.0 0.2-1.0 mg/dL Aspartate Amino Transferase (AST) 19 13-40 U/L Alanine Aminotransferase (ALT) < 9 7-40 U/L Alkaline Phosphatase 80 46-116 U/L Total Protein 7.1 5.7-8.2 g/dL Albumin 4.3 3.2-4.8 g/dL Influenza Type A Antigen Negative Negative Influenza Type B Antigen Positive Negative SARS-CoV-2 Antigen (Rapid) Negative NEGATIVE Hemoglobin A1c 5.1 <5.7 % A1C B-Type Natriuretic Peptide 79.46 0-100 pg/mL Vitamin D 25-Hydroxy 43.7 30.0-100 ng/mL Thyroid Stimulating Hormone (TSH) 1.80 0.55-4.78 uIU/mL Urine Color Colorless Yellow Urine Clarity Turbid H Clear Urine pH 5.5 5.0-9.0 Urine Specific [place] 1.013 1.001-1.035 Urine Protein Negative Negative Urine Ketones Negative Negative Urine Blood Trace H Negative /uL Urine Nitrite Negative Negative Urine Bilirubin Negative Negative Urine Urobilinogen Normal Negative mg/dL Urine Leukocyte Esterase 3+ Negative /uL Urine RBC 1 0 - 4 /hpf Urine WBC 4 0 - 5 /hpf Urine Squamous Epithelial Cells Few <5 /hpf Urine Bacteria Few H None Seen /hpf Urine Glucose Normal Normal mg/dL Microbiology Date/Time Source Procedure Growth Status 06/25/24 20:22 Voided Urine Urine Culture - Preliminary Resulted Assessment Sepsis with pneumonia/influenza B Presence of biventricular ICD, [employer] Paroxysmal atrial fibrillation, now sinus tachycardia, on Pradaxa Hypertension Dementia Plan/Recommendation (Dr. Mejia) The patient underwent a 12-lead electrocardiogram revealing an AV paced rhythm with underlined sinus tachycardia. A BiV-ICD interrogation revealed a normal function device with intermittent PMT episodes and a generator life of approximately 7.5 years. We recommend initiation of beta-laurita in addition to full anticoagulation. Given sinus tachycardia, continue underlined treatment of causes such as temperature control and ABX therapy. Resume Pradaxa therapy at home. Follow-up with primary Field Sales Executive at [place] within 3-4 weeks post- discharge. There there is no further cardiac workup indicated at this time. Kindly call if you need to re-consult. Thank you for allowing us to participate in this patient's care. This medical document was created using an electronic medical record system with voice recognition software and computerized dictation system. Although this document has been carefully reviewed, there might still be some phonetic and typographical errors. Occasional wrong-word or ``sound-alike substitutions may have occurred due to the inherent limitations of voice recognition software. These areas are purely typographical due to imperfections of the software programs and do not reflect any compromise in the patient's medical care. Savita merlos read the chart carefully and recognize, using context, where these substitutions have occurred. Plan discussed with: Patient, Other NYHA Physical activity limitations: NA Date of Service: Jun 27, 2024 Billing Provider: MYRA MEJIA MD Cardiology Common Codes: [id number] INP/OBS CARE (High) OSWALD AMOS PLANER TAILER Jun 27, 2024 13:40
--- NOTE | 2024-06-27 17:02 | DVHPNRES ---
Progress Note Date Seen: Jun 27, 2024 Resident Creating Document: CHI CHISHOLM RESIDENT Medical Necessity Reason Pt with a Central, PICC or Fol: Yes Subjective Review of Systems This is a 88 years old female with past medical history of AFib, dementia and hypertension who presented to [facility] ED for an evaluation after mechanical fall. Patient reports feeling weakness, tripped and fall landing on her right shoulder with sustained right shoulder pain. Patient was seen and examined on the bed side. She is alert, oriented X3. No active complaints. Cardiology was consulted because of tachyarrhythmias. cardiology evaluated the patient and mentioned AV paced rhythm with underlying sinus tachycardia. A BiV-ICD interrogation revealed a normal function device with intermittent PMT episodes and a generator life of approximately 7.5 years. cardiology recommended beta laurita in addition to full anticoagulation. Review of system could not be assessed as the patient has dementia Objective vital signs Vital Sign Date Time Temp Pulse Resp B/P (MAP) Pulse Ox O2 Delivery O2 Flow Rate FiO2 06/27/24 13:00 97.5 116 16 138/88 (105) 98 97.5 06/27/24 08:00 Nasal Cannula* 2 28 Total Intake and Output 06/26/24 06/26/24 06/27/24 15:00 23:00 07:00 Intake Total 100 ml Output Total 500 ml Balance -400 ml medications Current Medications Medications Dose Ordered Sig/Efrain Route Start Time Stop Time Status Last Admin Dose Admin Ceftriaxone Sodium 50 ml @ 100 mls/hr DAILY@09 IV 06/26/24 09:00 06/27/24 10:09 100 MLS/HR Famotidine 20 mg DAILY IV 06/26/24 10:00 06/27/24 10:09 20 MG Hydralazine HCl 10 mg Q6HP PRN IV 06/26/24 04:00 Sodium Chloride 10 ml Q8HR IV 06/26/24 06:00 06/27/24 14:00 10 ML Acetaminophen/ Hydrocodone Bitart 1 tab Q4HP PRN PO 06/26/24 04:00 06/26/24 14:35 1 TAB Ondansetron HCl 4 mg Q4HP PRN IV 06/26/24 04:00 06/26/24 19:49 4 MG Docusate Sodium 100 mg BIDPRN PRN PO 06/26/24 04:00 06/27/24 10:09 100 MG Acetaminophen 650 mg Q6HP PRN PO 06/26/24 04:00 Morphine Sulfate 2 mg Q4HPRN PRN IV 06/26/24 04:00 06/27/24 03:23 2 MG Nitroglycerin 0.4 mg Q5MINP PRN SL 06/26/24 04:00 Morphine Sulfate 2 mg Q30M PRN IV 06/26/24 04:00 Memantine 5 mg DAILY PO 06/27/24 10:00 06/27/24 10:10 5 MG Patient Own Medication 110 BID PO 06/26/24 22:00 Azithromycin 250 ml @ 125 mls/hr DAILY IV 06/27/24 10:00 06/27/24 10:10 125 MLS/HR Oseltamivir Phosphate 30 mg Q12HR PO 06/27/24 10:00 07/01/24 22:01 06/27/24 10:10 30 MG Metoprolol Succinate 25 mg DAILY PO 06/28/24 10:00 Enoxaparin Sodium 60 mg Q12HR SC 06/27/24 22:00 Examination Physical examination: General Appearance: Alert, Oriented X3, Cooperative, No acute distress HEENT: Atraumatic, PERRLA, EOMI, Mucous membrane moist/pink Respiratory: Clear to auscultation, Normal air movement Cardiovascular: Regular rate, Normal S1, Normal S2, No murmurs, no chest wall tenderness Abdominal: Normal bowel sounds, Soft, No tenderness, No hepatospenomegaly, No masses Extremities: No clubbing, No cyanosis, No edema, Normal pulses, No tenderness/swelling Skin: No rashes, No breakdown, No significant lesion Neuro: Bed bound, Normal speech, Strength at 5/5 X4 ext, Normal tone, Sensation intact, grossly intact cranial nerves. Psych/Mental Status: Mental status NL, Mood NL laboratory and microbiology Laboratory Tests 06/27/24 08:50 Test 06/27/24 08:50 Range/Units Serum Glucose 125 H 74-106 mg/dL Microbiology Date/Time Source Procedure Growth Status 06/25/24 20:22 Voided Urine Urine Culture - Preliminary Resulted Labs and/or images reviewed: Labs reviewed by me, Image(s) reviewed by me Problem List/Assessment/Plan Problem List/Assessment/Plan Assessment and plan: # Acute hypoxic respiratory failure likely due to community-acquired Gram- positive / Gram-negative pneumonia # S/P mechanical fall # S/P AICD on rt side - Chest xray demonstrated new left basilar pneumonia and chronic central peribronchial thickening - IV ceftriaxone 1 g daily and IV azithromycin 500 mg daily - CT head revealed no acute intracranial abnormality and moderate global cortical atrophy and chronic microvascular ischemic changes - Rt shoulder xray demonstrated Bony demineralization. No definite acute fracture. Mild acromioclavicular and glenohumeral joint arthrosis - Cardiology evaluated the patient and mentioned AV paced rhythm with underlying sinus tachycardia - A BiV-ICD interrogation revealed a normal function device with intermittent PMT episodes and a generator life of approximately 7.5 years - Cardiology recommended beta laurita in addition to full anticoagulation. # Hypercalcemia likely due to dehydration - IV normal saline at 60 ml/hr # Paroxysmal atrial fibrillation with secondary hypercoagulable state [id number] score >4 - Metoprolol succinate XL 25 mg p.o. daily - Therapeutic Lovenox 1 mg/per kg body weight 12 hourly # Acute cystitis - U/A consistent with UTI - Ordered urine bacterial culture - IV ceftriaxone I gm daily. 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 daily # Hypertensive heart disease - Lisinopril 2.5 mg p.o. daily Diet: Cardiac PUD prophylaxis: Famotidine 20 mg IV daily DVT prophylaxis: Patient is on therapeutic Lovenox Disposition : Telemetry Patient is stable and refused to transfer to [place] Plan discussed with Dr. Villarreal Plan discussed with: Patient, Other My Orders My Orders Orders - CHI CHISHOLM Procedure Category Date Status Time Cleanse Wound With CARLOS 06/26/24 In Process Wound Clean 17:37 Date of Service: Jun 27, 2024 Billing Provider: KRUNAL HUFFMAN MD Common Visit Codes: [id number] INP/OBS CARE(HIGH) CHI CHISHOLM Jun 27, 2024 17:02 KRUNAL HUFFMAN MD Jun 30, 2024 12:50
[2024-06-27] MEDS: ENOXAPARIN SOD 60 MG/0.6 ML SYRINGE SC ONE (17:04)
[2024-06-27] MEDS: SODIUM CHLORIDE 0.9% 1,000 ML IV SCH (20:40)
[2024-06-27] MEDS: ENOXAPARIN SOD 60 MG/0.6 ML SYRINGE SC SCH (21:16)
[2024-06-28] VITALS (9 sets, daily range): BP systolic 101–134; BP diastolic 62–117; PULSE 77–155; RESP 16–21; TEMP 97.4–99; O2SAT 92–97
[2024-06-28] MEDS: ACETAMINOPHEN 325 MG TAB PO PRN (01:38)
[2024-06-28] MEDS: AMIODARONE BOLUS KIT 100 ML IV ONE ×2 (03:45→03:48)
[2024-06-28] MEDS: AMIODARONE 360mg/200mL PREMIX 200 ML IV ONE (04:00)
[2024-06-28 08:30] LABS: Basophils # (auto) 0.1 10 ^3/uL (0-0.2); Basophils % (auto) 0.5 % (0.0-2.0); Eosinophils # (auto) 0.1 10 ^3/uL (0-0.8); Eosinophils % (auto) 0.6 % (0.0-7.0); Hematocrit 43.2 % (36.0-46.0); Hemoglobin 14.6 g/dL (12.2-16.2); Lymphocytes # (auto) 0.5 10 ^3/uL (0.4-5.4); Lymphocytes % (auto) 4.1 % (10.0-50.0); Mean Corpuscular Hemoglobin 32.9 pg (28.0-32.0); Mean Corpuscular Hgb Conc. 33.8 g/dL (32.0-36.0); Mean Corpuscular Volume 97.3 fL (80.0-100.0); Monocytes # (auto) 1.4 10 ^3/uL (0-1.3); Monocytes % (auto) 11.2 % (0.0-12.0); Neutrophils # (auto) 10.8 10 ^3/uL (1.6-8.6); Neutrophils % (auto) 83.6 % (37.0-80.0); Platelet Count (auto) 214 10^3/uL (140-450); Red Blood Cells 4.44 10^6/uL (4.0-5.20); Red Cell Distribution Width 12.9 % (11.8-14.3); White Blood Cell 12.9 10^3/uL (4.4-10.8)
[2024-06-28 08:37] LABS: Chloride 105 mmol/L (98-107); Sodium 137 mmol/L (136-145)
[2024-06-28 08:38] LABS: Anion Gap 10 (5-15); Carbon Dioxide 22 mmol/L (20-31)
[2024-06-28] MEDS: METOPROLOL SUCCINATE XL 50 MG TAB PO SCH (08:39)
[2024-06-28 08:43] LABS: BUN/Creatinine Ratio 16.9 (10.0-20.0); Blood Urea Nitrogen 15 mg/dL (9-23); Glucose 105 mg/dL (74-106)
[2024-06-28 08:52] LABS: Calcium 10.5 mg/dL (8.7-10.4)
--- NOTE | 2024-06-28 09:32 | ECG ---
[facility] Test Date: 2024-06-27 Test Time: 13:08:36 Pat Name: ANDREA DEMARCO Department: Room: [facility]6T A Gender: F Arts Manager: CHRIS : [id number] Requested By: HITESH MARTINEZ Order Number: [id number] Reading MD: Jayro Foy Measurements Intervals [place] Rate: 116 P: 57 MN: 123 QRS: 250 QRSD: 140 T: 55 QT: 377 QTc: 524 Interpretive Statements Atrial-sensed ventricular-paced complexes No further rhythm analysis attempted due to paced rhythm Electronically Signed On 06-29-2024 10:31:18 PST by Jayro Foy Please click the below link to view image of tracing.
[2024-06-28] MEDS: AMIODARONE 360mg/200mL PREMIX 200 ML IV SCH (10:53)
[2024-06-28] MEDS: DOXYCYCLINE 100MG/100ML 100 ML IV SCH (12:03)
[2024-06-28] MEDS: AMIODARONE HCL 200 MG TAB PO ONE (12:03)
--- NOTE | 2024-06-28 13:27 | DVHPN2 ---
Consult Progress Note Date Seen: Jun 28, 2024 Subjective Other Systems: Notified of patient on amiodarone drip earlier today, upon assessment AV paced rhythm with underlined NSR Objective vital signs Vital Sign Date Time Temp Pulse Resp B/P (MAP) Pulse Ox O2 Delivery O2 Flow Rate FiO2 06/28/24 09:00 97.4 94 20 128/62 (84) 97 97.4 06/28/24 08:00 Nasal Cannula* 3 32 Total Intake and Output 06/27/24 06/27/24 06/28/24 15:00 23:00 07:00 Intake Total 480 ml 33.33 ml Output Total 250 ml 350 ml Balance 230 ml -316.67 ml medications Current Medications Medications Dose Ordered Sig/Efrain Route Start Time Stop Time Status Last Admin Dose Admin Ceftriaxone Sodium 50 ml @ 100 mls/hr DAILY@09 IV 06/26/24 09:00 06/28/24 08:45 100 MLS/HR Famotidine 20 mg DAILY IV 06/26/24 10:00 06/28/24 08:45 20 MG Hydralazine HCl 10 mg Q6HP PRN IV 06/26/24 04:00 Sodium Chloride 10 ml Q8HR IV 06/26/24 06:00 06/28/24 05:23 10 ML Acetaminophen/ Hydrocodone Bitart 1 tab Q4HP PRN PO 06/26/24 04:00 06/26/24 14:35 1 TAB Ondansetron HCl 4 mg Q4HP PRN IV 06/26/24 04:00 06/26/24 19:49 4 MG Docusate Sodium 100 mg BIDPRN PRN PO 06/26/24 04:00 06/27/24 10:09 100 MG Acetaminophen 650 mg Q6HP PRN PO 06/26/24 04:00 06/28/24 01:38 650 MG Morphine Sulfate 2 mg Q4HPRN PRN IV 06/26/24 04:00 06/27/24 03:23 2 MG Nitroglycerin 0.4 mg Q5MINP PRN SL 06/26/24 04:00 Morphine Sulfate 2 mg Q30M PRN IV 06/26/24 04:00 Memantine 5 mg DAILY PO 06/27/24 10:00 06/28/24 08:39 5 MG Oseltamivir Phosphate 30 mg Q12HR PO 06/27/24 10:00 07/01/24 22:01 06/28/24 08:45 30 MG Metoprolol Succinate 25 mg DAILY PO 06/28/24 10:00 06/28/24 08:39 25 MG Enoxaparin Sodium 60 mg Q12HR SC 06/27/24 22:00 06/28/24 10:21 60 MG Doxycycline Hyclate 100 ml @ 50 mls/hr Q12H IV 06/28/24 10:45 06/28/24 12:03 50 MLS/HR Amiodarone HCl 200 mg Q12HR PO 06/28/24 22:00 Examination: GENERAL:Abnormal, LUNGS:Normal, CVS:Normal, NEURO:Abnormal laboratory and microbiology Laboratory Tests 06/28/24 07:39 Test 06/28/24 07:39 Range/Units Serum Glucose 105 74-106 mg/dL Problem List/Assessment/Plan Problem List/Assessment/Plan Sepsis with pneumonia/influenza B Presence of biventricular ICD, [place] [employer] Paroxysmal atrial fibrillation, now sinus tachycardia, on Pradaxa Hypertension Dementia Plan/Recommendation (Dr. Cobb) The patient underwent a 12-lead electrocardiogram revealing an AV paced rhythm with underlined sinus tachycardia. A BiV-ICD interrogation revealed a normal function device with intermittent PMT episodes and a generator life of approximately 7.5 years. Continue beta-laurita in addition to full anticoagulation. Transition from amiodarone drip to amiodarone p.o. Agree with transthoracic echocardiogram to further assess structural function. Follow-up with primary Python Developer at [place] within 3-4 weeks post-discharge. Thank you for allowing us to participate in this patient's care. This medical document was created using an electronic medical record system with voice recognition software and computerized dictation system. Although this document has been carefully reviewed, there might still be some phonetic and typographical errors. Occasional wrong-word or ``sound-alike substitutions may have occurred due to the inherent limitations of voice recognition software. These areas are purely typographical due to imperfections of the software programs and do not reflect any compromise in the patient's medical care. Please read the chart carefully and recognize, using context, where these substitutions have occurred. Plan discussed with: Other Date of Service: Jun 28, 2024 Billing Provider: OSWALD AMOS Cardiology Common Codes: [id number] HOSP CARE([facility] OSWALD AMOS Jun 28, 2024 13:27
[2024-06-28] MEDS: MAGNESIUM SULFATE 1GM/100ML 100 ML IV ONE (13:49)
--- NOTE | 2024-06-28 16:59 | DVHPNRES ---
Progress Note Date Seen: Jun 28, 2024 Resident Creating Document: CHI CHISHOLM RESIDENT Medical Necessity Reason Pt with a Central, PICC or Fol: Yes Subjective Review of Systems This is a 88 years old female with past medical history of AFib, dementia and hypertension who presented to [facility] ED for an evaluation after mechanical fall. Patient reports feeling weakness, tripped and fall landing on her right shoulder with sustained right shoulder pain. Patient was seen and examined on the bed side. She is alert, oriented X2. No active complaints. Patient had 1 episode of AFib with RVR last night and IV amiodarone as per protocol was initiated. Today morning cardiology evaluated the patient and transitioned from IV amiodarone to oral amiodarone 200 mg p.o. b.i.d. Review of system could not be assessed as the patient has dementia Objective vital signs Vital Sign Date Time Temp Pulse Resp B/P (MAP) Pulse Ox O2 Delivery O2 Flow Rate FiO2 06/28/24 13:00 97.9 90 21 106/71 (83) 96 97.9 06/28/24 08:00 Nasal Cannula* 3 32 Total Intake and Output 06/27/24 06/27/24 06/28/24 15:00 23:00 07:00 Intake Total 480 ml 33.33 ml Output Total 250 ml 350 ml Balance 230 ml -316.67 ml medications Current Medications Medications Dose Ordered Sig/Efrain Route Start Time Stop Time Status Last Admin Dose Admin Ceftriaxone Sodium 50 ml @ 100 mls/hr DAILY@09 IV 06/26/24 09:00 06/28/24 08:45 100 MLS/HR Famotidine 20 mg DAILY IV 06/26/24 10:00 06/28/24 08:45 20 MG Hydralazine HCl 10 mg Q6HP PRN IV 06/26/24 04:00 Sodium Chloride 10 ml Q8HR IV 06/26/24 06:00 06/28/24 13:50 10 ML Acetaminophen/ Hydrocodone Bitart 1 tab Q4HP PRN PO 06/26/24 04:00 06/26/24 14:35 1 TAB Ondansetron HCl 4 mg Q4HP PRN IV 06/26/24 04:00 06/26/24 19:49 4 MG Docusate Sodium 100 mg BIDPRN PRN PO 06/26/24 04:00 06/27/24 10:09 100 MG Acetaminophen 650 mg Q6HP PRN PO 06/26/24 04:00 06/28/24 01:38 650 MG Morphine Sulfate 2 mg Q4HPRN PRN IV 06/26/24 04:00 06/27/24 03:23 2 MG Nitroglycerin 0.4 mg Q5MINP PRN SL 06/26/24 04:00 Morphine Sulfate 2 mg Q30M PRN IV 06/26/24 04:00 Memantine 5 mg DAILY PO 06/27/24 10:00 06/28/24 08:39 5 MG Oseltamivir Phosphate 30 mg Q12HR PO 06/27/24 10:00 07/01/24 22:01 06/28/24 08:45 30 MG Metoprolol Succinate 25 mg DAILY PO 06/28/24 10:00 06/28/24 08:39 25 MG Enoxaparin Sodium 60 mg Q12HR SC 06/27/24 22:00 06/28/24 10:21 60 MG Doxycycline Hyclate 100 ml @ 50 mls/hr Q12H IV 06/28/24 10:45 06/28/24 12:03 50 MLS/HR Amiodarone HCl 200 mg Q12HR PO 06/28/24 22:00 Examination Physical examination: General Appearance: Alert, Oriented X3, Cooperative, No acute distress HEENT: Atraumatic, PERRLA, EOMI, Mucous membrane moist/pink Respiratory: Clear to auscultation, Normal air movement Cardiovascular: Regular rate, Normal S1, Normal S2, No murmurs, no chest wall tenderness Abdominal: Normal bowel sounds, Soft, No tenderness, No hepatospenomegaly, No masses Extremities: No clubbing, No cyanosis, No edema, Normal pulses, No tenderness/swelling Skin: No rashes, No breakdown, No significant lesion Neuro: Bed bound, Normal speech, Strength at 5/5 X4 ext, Normal tone, Sensation intact, grossly intact cranial nerves. Psych/Mental Status: Mental status NL, Mood NL laboratory and microbiology Laboratory Tests 06/28/24 07:39 Test 06/28/24 07:39 Range/Units Serum Glucose 105 74-106 mg/dL Microbiology Date/Time Source Procedure Growth Status 06/25/24 20:22 Voided Urine Urine Culture - Final Escherichia coli Complete Labs and/or images reviewed: Labs reviewed by me, Image(s) reviewed by me Problem List/Assessment/Plan Problem List/Assessment/Plan Assessment and plan: # Acute hypoxic respiratory failure likely due to community-acquired Gram- positive / Gram-negative pneumonia # S/P mechanical fall # S/P AICD on rt side - Chest xray demonstrated new left basilar pneumonia and chronic central peribronchial thickening - IV ceftriaxone 1 g daily and IV doxycycline 100 mg b.i.d - CT head revealed no acute intracranial abnormality and moderate global cortical atrophy and chronic microvascular ischemic changes - Rt shoulder xray demonstrated Bony demineralization. No definite acute fracture. Mild acromioclavicular and glenohumeral joint arthrosis - Cardiology evaluated the patient and mentioned AV paced rhythm with underlying sinus tachycardia - A BiV-ICD interrogation revealed a normal function device with intermittent PMT episodes and a generator life of approximately 7.5 years - Cardiology recommended beta laurita in addition to full anticoagulation. # Hypercalcemia likely due to dehydration - IV normal saline at 60 ml/hr # Paroxysmal atrial fibrillation with RVR and secondary hypercoagulable state [id number] score >4 - Metoprolol succinate XL 25 mg p.o. daily - Therapeutic Lovenox 1 mg/per kg body weight 12 hourly - Amiodarone 200 mg PO b.i.d - Pending echo # Acute cystitis - U/A consistent with UTI - Ordered urine bacterial culture - IV ceftriaxone I gm daily. 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 daily # Hypertensive heart disease - Lisinopril 2.5 mg p.o. daily Diet: Cardiac PUD prophylaxis: Famotidine 20 mg IV daily DVT prophylaxis: Patient is on therapeutic Lovenox Disposition : Telemetry Patient is stable and refused to transfer to [place] Plan discussed with Dr. Villarreal Plan discussed with: Patient, Other My Orders My Orders Orders - CHI CHISHOLM Procedure Category Date Status Time Doxycycline PHA 06/28/24 In Process 100mg/100ml 10:45 * Code Official CONS 06/28/24 Transmitted Consult Cardiac DIET 06/28/24 Transmitted Diet-2gna,Lofat,Lochol Dinner Date of Service: Jun 28, 2024 Billing Provider: KRUNAL HUFFMAN MD Common Visit Codes: [id number] INP/OBS CARE(HIGH) CHI CHISHOLM RESIDENT Jun 28, 2024 16:59 KRUNAL HUFFMAN MD Jun 30, 2024 13:01
[2024-06-28] MEDS: AMIODARONE HCL 200 MG TAB PO SCH (21:22)
[2024-06-29] VITALS (8 sets, daily range): BP systolic 110–140; BP diastolic 75–95; PULSE 85–97; RESP 15–19; TEMP 97.8–98.4; O2SAT 94–98
[2024-06-29 07:47] LABS: Chloride 105 mmol/L (98-107); Potassium 4.2 mmol/L (3.5-5.1); Sodium 137 mmol/L (136-145)
[2024-06-29 07:48] LABS: Anion Gap 12 (5-15); Carbon Dioxide 20 mmol/L (20-31)
[2024-06-29 07:53] LABS: BUN/Creatinine Ratio 21.6 (10.0-20.0); Blood Urea Nitrogen 21 mg/dL (9-23); Glucose 101 mg/dL (74-106)
[2024-06-29 07:55] LABS: Calcium 10.5 mg/dL (8.7-10.4)
[2024-06-29 08:01] LABS: Basophils # (auto) 0.1 10 ^3/uL (0-0.2); Basophils % (auto) 0.5 % (0.0-2.0); Eosinophils # (auto) 0 10 ^3/uL (0-0.8); Eosinophils % (auto) 0.1 % (0.0-7.0); Hematocrit 41.3 % (36.0-46.0); Lymphocytes # (auto) 0.5 10 ^3/uL (0.4-5.4); Lymphocytes % (auto) 3.4 % (10.0-50.0); Mean Corpuscular Hemoglobin 33.1 pg (28.0-32.0); Mean Corpuscular Hgb Conc. 33.9 g/dL (32.0-36.0); Mean Corpuscular Volume 97.6 fL (80.0-100.0); Monocytes % (auto) 7.5 % (0.0-12.0); Neutrophils % (auto) 88.5 % (37.0-80.0); Platelet Count (auto) 221 10^3/uL (140-450); Red Blood Cells 4.23 10^6/uL (4.0-5.20); Red Cell Distribution Width 12.9 % (11.8-14.3); White Blood Cell 13.5 10^3/uL (4.4-10.8)
--- NOTE | 2024-06-29 08:49 | DVHPN2 ---
Consult Progress Note Date Seen: Jun 29, 2024 Subjective Other Systems: No further overnight tachyarrhythmias reported Objective vital signs Vital Sign Date Time Temp Pulse Resp B/P (MAP) Pulse Ox O2 Delivery O2 Flow Rate FiO2 06/29/24 05:00 97.8 97 16 136/87 (103) 95 97.8 06/28/24 20:00 Nasal Cannula* 3 32 Total Intake and Output 06/28/24 06/28/24 06/29/24 15:00 23:00 07:00 Intake Total 482 ml 200 ml 100 ml Output Total 250 ml Balance 482 ml 200 ml -150 ml medications Current Medications Medications Dose Ordered Sig/Efrain Route Start Time Stop Time Status Last Admin Dose Admin Ceftriaxone Sodium 50 ml @ 100 mls/hr DAILY@09 IV 06/26/24 09:00 06/28/24 08:45 100 MLS/HR Famotidine 20 mg DAILY IV 06/26/24 10:00 06/28/24 08:45 20 MG Hydralazine HCl 10 mg Q6HP PRN IV 06/26/24 04:00 Sodium Chloride 10 ml Q8HR IV 06/26/24 06:00 06/29/24 06:07 10 ML Acetaminophen/ Hydrocodone Bitart 1 tab Q4HP PRN PO 06/26/24 04:00 06/26/24 14:35 1 TAB Ondansetron HCl 4 mg Q4HP PRN IV 06/26/24 04:00 06/26/24 19:49 4 MG Docusate Sodium 100 mg BIDPRN PRN PO 06/26/24 04:00 06/27/24 10:09 100 MG Acetaminophen 650 mg Q6HP PRN PO 06/26/24 04:00 06/28/24 01:38 650 MG Morphine Sulfate 2 mg Q4HPRN PRN IV 06/26/24 04:00 06/27/24 03:23 2 MG Nitroglycerin 0.4 mg Q5MINP PRN SL 06/26/24 04:00 Morphine Sulfate 2 mg Q30M PRN IV 06/26/24 04:00 Memantine 5 mg DAILY PO 06/27/24 10:00 06/28/24 08:39 5 MG Oseltamivir Phosphate 30 mg Q12HR PO 06/27/24 10:00 07/01/24 22:01 06/28/24 21:22 30 MG Metoprolol Succinate 25 mg DAILY PO 06/28/24 10:00 06/28/24 08:39 25 MG Enoxaparin Sodium 60 mg Q12HR SC 06/27/24 22:00 06/28/24 21:22 60 MG Doxycycline Hyclate 100 ml @ 50 mls/hr Q12H IV 06/28/24 10:45 06/28/24 22:35 50 MLS/HR Amiodarone HCl 200 mg Q12HR PO 06/28/24 22:00 06/28/24 21:22 200 MG Examination: GENERAL:Abnormal, LUNGS:Normal, CVS:Normal, NEURO:Abnormal laboratory and microbiology Laboratory Tests 06/29/24 06:53 Test 06/29/24 06:53 Range/Units Serum Glucose 101 74-106 mg/dL Problem List/Assessment/Plan Problem List/Assessment/Plan Sepsis with pneumonia/influenza B Presence of biventricular ICD, [place] scientific Paroxysmal atrial fibrillation, now sinus tachycardia, on Pradaxa Hypertension Dementia Plan/Recommendation (Dr. Foy) Transthoracic echocardiogram revealed an LVEF of 55% with moderate to severe aortic valve stenosis. This needs close monitoring with repeat echo in 6 months. BiV-ICD interrogation revealed a normal function device with intermittent PMT episodes and a generator life of approximately 7.5 years. Continue beta-laurita in addition to full anticoagulation as well as antiarrhythmics therapy with amiodarone. Follow-up with primary Medicaid Analyst at [place] within 3-4 weeks post-discharge. There is no further cardiac work-up indicated at this time. Kindly all if in need to re-consult. Thank you for allowing us to participate in this patient's care. This medical document was created using an electronic medical record system with voice recognition software and computerized dictation system. Although this document has been carefully reviewed, there might still be some phonetic and typographical errors. Occasional wrong-word or ``sound-alike substitutions may have occurred due to the inherent limitations of voice recognition software. These areas are purely typographical due to imperfections of the software programs and do not reflect any compromise in the patient's medical care. Please read the chart carefully and recognize, using context, where these substitutions have occurred. Plan discussed with: Other Date of Service: Jun 29, 2024 Billing Provider: AMOS,OSWALD INCINERATOR OPERATOR Cardiology Common Codes: [id number] HOSP CARE(OSWALD Cullen INCINERATOR OPERATOR Jun 29, 2024 08:49
[2024-06-29] MEDS: DOXYCYCLINE 100 MG TAB/CAP PO ONE (10:45)
--- NOTE | 2024-06-29 11:56 | DVHSR ---
APPROVED REPORT EXAM: LIMITED Two-dimensional and M-mode echocardiogram with Doppler and color Doppler. Blood Pressure: 128/62 mmHg INDICATION Possible afib with RVRr RISK FACTORS Height: 5'9, Weight: 126 DIMENSIONS LVDd4.0 (3.8-5.7cm)LA (2D) (1.9-4.0cm)Aortic Root3.6 (2.0-3.7cm) LVDs3.1 (2.5-4.0cm)LA (MM) (1.9-4.0cm)Aortic Cusp Exc0.6 (1.5-2.0cm) EF (%) 55.0 (55-70%)Rt. Atrium (1.9-4.0cm)Asc. Aorta cm IVSd0.9 (0.7-1.1cm)RV (D) (1.8-2.4cm) PWd0.9 (0.7-1.1cm) Mitral Valve MitralMitral Stenosis E wave0.51m/sMV Mean GR.mmHg A wave0.91m/sMV Peak GR.117mmHg E/A ratio0.62D MVAcm2 DECEL [id number] 1/2 Timems Aortic Valve Aortic ValveAortic Stenosis V10.76m/Dean Mean GR.18mmHg V22.66m/Dean Peak GR.28mmHg LVOT Diameter2.2 (1.8-2.4cm)Doppler AVA1.09cm2 Pulmonic Valve V21.09m/s Tricuspid Valve TR Velocity2.66m/s [id number] LEFT VENTRICLE Normal left ventricular size. Wall thickness is normal. Ejection fraction is normal is estimated 55 %. There is no gross wall motion abnormalities but endocardial definition is suboptimal. Diastolic function is indeterminate as patient has atrial fibrillation at time of the study. RIGHT VENTRICLE The right ventricle is of normal size. Systolic function is normal. ATRIA There is mild biatrial enlargement. Not well visualized. MITRAL VALVE There is mild mitral annular calcification. No significant mitral regurgitation or stenosis. PULMONIC VALVE Likely normal. TRICUSPID VALVE Normal structure and function. There is trace tricuspid regurgitation. PA systolic pressure is bob mated at 30-35 mm Hg. AORTIC VALVE The leaflets appear to be heavily calcified. Peak aortic velocity is estimated at 2.7 m/sec with a m yasir gradient of 19 mm Hg. The aortic valve area is estimated at 1.1 cm2. Dimensionless index is est imated at 0.28. There is no significant insufficiency. GREAT VESSELS The aortic root is of normal size. Proximal ascending aorta is not visualized. PERICARDIAL EFFUSION No significant pericardial effusion. IVC is of normal size and collapses normally with inspiration. Other Information Quality : Technically LimitedRhythm : Technically limited study due to patient position.body habitus. Conclusion The study is technically limited. The aortic valve leaflets appeared to be heavily calcified. There is [id number] aortic valve stenosis. This needs close monitoring with repeat echo in 6 months. Normal left ventricular size and systolic function. Ejection fraction is estimated at 55%. Normal right ventricular size and systolic function. PA systolic pressure is estimated at 30-35 mm Hg.
--- NOTE | 2024-06-29 14:39 | ECG ---
[facility] Test Date: 2024-06-28 Test Time: 03:37:55 Pat Name: ANDREA DEMARCO Department: Room: 0282T Gender: F Customer Relationship Specialist: GP : [id number] Requested By: LATRICIA VENEGAS Order Number: [id number] Reading MD: Jayro oFy Measurements Intervals [place] Rate: 190 P: 0 VA: 0 QRS: -89 QRSD: 140 T: 100 QT: 292 QTc: 519 Interpretive Statements Extreme tachycardia with wide complex, no further rhythm analysis attempted LBBB Electronically Signed On 06-30-2024 8:12:05 PST by Jayro Foy Please click the below link to view image of tracing.
--- NOTE | 2024-06-29 14:41 | DVH ---
Exam: US BLADDER History: CHECKING IF WILHELM CATHETER IS IN BLADDER Comparison: None Date: 06/29/2024 02:16 PM Technique: Grayscale and color Doppler ultrasound of the pelvis was obtained. Pre-and postvoid images of the bladder were obtained. Findings: Wilhelm noted in left adnexa/groin. IMPRESSION: Wilhelm noted in left adnexa/groin. END IMPRESSION:
[2024-06-29] MEDS: SODIUM CHLORIDE 0.9% 500 ML IV ONE (16:57)
[2024-06-29 17:09] LABS: Base Excess -3.5 mmol/L (-2.0-3.0)
--- NOTE | 2024-06-29 17:20 | DVHPNRES ---
Progress Note Date Seen: Jun 29, 2024 Resident Creating Document: CHI CHISHOLM RESIDENT Medical Necessity Reason Pt with a Central, PICC or Fol: Yes Subjective Review of Systems This is a 88 years old female with past medical history of AFib, dementia and hypertension who presented to [facility] ED for an evaluation after mechanical fall. Patient reports feeling weakness, tripped and fall landing on her right shoulder with sustained right shoulder pain. Patient was seen and examined on the bedside. She is alert oriented x2 and following commands, on room air. No urine output in 24 hours and IV normal saline 500 bolus given. Objective vital signs Vital Sign Date Time Temp Pulse Resp B/P (MAP) Pulse Ox O2 Delivery O2 Flow Rate FiO2 06/29/24 09:55 91 110/77 06/29/24 09:00 98.0 16 97 98.0 06/29/24 08:15 Room Air* 0 N/A Nasal Cannula* Total Intake and Output 06/28/24 06/28/24 06/29/24 15:00 23:00 07:00 Intake Total 482 ml 200 ml 100 ml Output Total 250 ml Balance 482 ml 200 ml -150 ml medications Current Medications Medications Dose Ordered Sig/Efrain Route Start Time Stop Time Status Last Admin Dose Admin Ceftriaxone Sodium 50 ml @ 100 mls/hr DAILY@09 IV 06/26/24 09:00 06/29/24 09:44 100 MLS/HR Famotidine 20 mg DAILY IV 06/26/24 10:00 06/29/24 09:44 20 MG Hydralazine HCl 10 mg Q6HP PRN IV 06/26/24 04:00 Sodium Chloride 10 ml Q8HR IV 06/26/24 06:00 06/29/24 14:00 10 ML Acetaminophen/ Hydrocodone Bitart 1 tab Q4HP PRN PO 06/26/24 04:00 06/26/24 14:35 1 TAB Ondansetron HCl 4 mg Q4HP PRN IV 06/26/24 04:00 06/26/24 19:49 4 MG Docusate Sodium 100 mg BIDPRN PRN PO 06/26/24 04:00 06/27/24 10:09 100 MG Acetaminophen 650 mg Q6HP PRN PO 06/26/24 04:00 06/28/24 01:38 650 MG Morphine Sulfate 2 mg Q4HPRN PRN IV 06/26/24 04:00 06/27/24 03:23 2 MG Nitroglycerin 0.4 mg Q5MINP PRN SL 06/26/24 04:00 Morphine Sulfate 2 mg Q30M PRN IV 06/26/24 04:00 Memantine 5 mg DAILY PO 06/27/24 10:00 06/29/24 09:56 5 MG Oseltamivir Phosphate 30 mg Q12HR PO 06/27/24 10:00 07/01/24 22:01 06/29/24 09:55 30 MG Metoprolol Succinate 25 mg DAILY PO 06/28/24 10:00 06/29/24 09:55 25 MG Enoxaparin Sodium 60 mg Q12HR SC 06/27/24 22:00 06/29/24 09:56 60 MG Amiodarone HCl 200 mg Q12HR PO 06/28/24 22:00 06/29/24 09:45 200 MG Doxycycline Monohydrate 100 mg Q12HR PO 06/29/24 22:00 Examination Physical examination: General Appearance: Alert, Oriented X3, Cooperative, No acute distress HEENT: Atraumatic, PERRLA, EOMI, Mucous membrane moist/pink Respiratory: Decreased breath sound bilaterally. Cardiovascular: Regular rate, Normal S1, Normal S2, No murmurs, no chest wall tenderness Abdominal: Normal bowel sounds, Soft, No tenderness, No hepatospenomegaly, No masses Extremities: No clubbing, No cyanosis, No edema, Normal pulses, No tenderness/swelling Skin: No rashes, No breakdown, No significant lesion Neuro: Bed bound, Normal speech, Strength at 5/5 X4 ext, Normal tone, Sensation intact, grossly intact cranial nerves. Psych/Mental Status: Mental status NL, Mood NL laboratory and microbiology Laboratory Tests 06/29/24 06:53 Test 06/29/24 06:53 Range/Units Serum Glucose 101 74-106 mg/dL Microbiology Date/Time Source Procedure Growth Status 06/25/24 20:22 Voided Urine Urine Culture - Final Escherichia coli Complete Labs and/or images reviewed: Labs reviewed by me, Image(s) reviewed by me Problem List/Assessment/Plan Problem List/Assessment/Plan Assessment and plan: # Acute hypoxic respiratory failure likely due to community-acquired Gram- positive / Gram-negative pneumonia # S/P mechanical fall # S/P AICD on rt side - Chest xray demonstrated new left basilar pneumonia and chronic central peribronchial thickening - IV ceftriaxone 1 g daily and IV doxycycline 100 mg b.i.d - CT head revealed no acute intracranial abnormality and moderate global cortical atrophy and chronic microvascular ischemic changes - Rt shoulder xray demonstrated Bony demineralization. No definite acute fracture. Mild acromioclavicular and glenohumeral joint arthrosis - Cardiology evaluated the patient and mentioned AV paced rhythm with underlying sinus tachycardia - A BiV-ICD interrogation revealed a normal function device with intermittent PMT episodes and a generator life of approximately 7.5 years - Cardiology recommended beta laurita in addition to full anticoagulation. # Hypercalcemia likely due to dehydration # Anuria - ultrasound of the bladder revealed retention. - IV normal saline bolus 500 mL. # Paroxysmal atrial fibrillation with RVR and secondary hypercoagulable state [id number] score >4 - Metoprolol succinate XL 25 mg p.o. daily - Therapeutic Lovenox 1 mg/per kg body weight 12 hourly - Amiodarone 200 mg PO b.i.d - Echo revealed EF 55%with moderate to severe aortic stenosis and needs follow up echo in six-month to assess the degree of stenosis. # Acute cystitis - U/A consistent with UTI - Urine c/s revealed E.coli. - IV ceftriaxone I gm daily. 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 daily # Hypertensive heart disease - Lisinopril 2.5 mg p.o. daily Diet: Cardiac PUD prophylaxis: Famotidine 20 mg IV daily DVT prophylaxis: Patient is on therapeutic Lovenox Disposition : Telemetry Patient is stable and refused to transfer to [place] Plan discussed with Dr. Villarreal Plan discussed with: Patient, Other My Orders My Orders Orders - CHI CHISHOLM RESIDENT Procedure Category Date Status Time Pt Request For Service PT 06/29/24 Logged 10:30 * Freight Broker CONS 06/29/24 Transmitted Consult Sodium Chloride 0.9% PHA 06/29/24 In Process 16:45 Ammonia LAB 06/29/24 Logged 16:45 Basic Metabolic Panel LAB 06/29/24 Logged 16:45 Abg W/ Co-Ox RT 06/29/24 Logged 16:45 Chest Xray 1 View XY 06/29/24 Taken 16:45 Date of Service: Jun 29, 2024 Billing Provider: KRUNAL HUFFMAN MD Common Visit Codes: [id number] INP/OBS CARE(HIGH) CHI CHISHOLM RESIDENT Jun 29, 2024 17:20 KRUNAL HUFFMAN MD Jun 30, 2024 13:10
--- NOTE | 2024-06-29 18:01 | DVH ---
CHEST RADIOGRAPH Indication: hypoxia Technique: Single frontal view of the chest was obtained Comparison: XY CHEST XRAY 1 VIEW on DOS: 06/26/24, CHEST XRAY 1 VIEW on DOS: 02/07/22, CXR1 on DOS: FINDINGS: Lines and Tubes: Right-sided pacemaker/AICD Lungs: No focal consolidation. Pleura: No effusion. No pneumothorax. Cardiomediastinal contours: Unremarkable Bones: No acute osseous abnormality. IMPRESSION: No acute cardiopulmonary disease.
[2024-06-29 18:18] LABS: Sodium 137 mmol/L (136-145)
[2024-06-29 18:19] LABS: Anion Gap 10 (5-15); Calcium 10.2 mg/dL (8.7-10.4); Carbon Dioxide 20 mmol/L (20-31)
[2024-06-29 18:24] LABS: BUN/Creatinine Ratio 22.3 (10.0-20.0); Blood Urea Nitrogen 21 mg/dL (9-23); Glucose 90 mg/dL (74-106)
[2024-06-29 18:37] LABS: Chloride 107 mmol/L (98-107)
[2024-06-29] MEDS: DOXYCYCLINE 100 MG TAB/CAP PO SCH (21:37)
[2024-06-29] MEDS: SODIUM CHLORIDE 0.9% 1,000 ML IV SCH (21:37)
[2024-06-30] VITALS (14 sets, daily range): BP systolic 89–149; BP diastolic 36–89; PULSE 91–109; RESP 14–19; TEMP 97.3–98.4; O2SAT 91–97
[2024-06-30 04:49] LABS: Basophils # (auto) 0 10 ^3/uL (0-0.2); Basophils % (auto) 0.3 % (0.0-2.0); Eosinophils # (auto) 0.1 10 ^3/uL (0-0.8); Eosinophils % (auto) 0.4 % (0.0-7.0); Hematocrit 32.1 % (36.0-46.0); Hemoglobin 10.6 g/dL (12.2-16.2); Lymphocytes # (auto) 0.5 10 ^3/uL (0.4-5.4); Lymphocytes % (auto) 2.8 % (10.0-50.0); Mean Corpuscular Hemoglobin 32.7 pg (28.0-32.0); Mean Corpuscular Hgb Conc. 33.1 g/dL (32.0-36.0); Mean Corpuscular Volume 98.7 fL (80.0-100.0); Monocytes # (auto) 1.8 10 ^3/uL (0-1.3); Monocytes % (auto) 10.9 % (0.0-12.0); Neutrophils % (auto) 85.6 % (37.0-80.0); Platelet Count (auto) 199 10^3/uL (140-450); Red Blood Cells 3.25 10^6/uL (4.0-5.20); Red Cell Distribution Width 13.1 % (11.8-14.3); White Blood Cell 16.3 10^3/uL (4.4-10.8)
--- NOTE | 2024-06-30 05:16 | DVH ---
PROCEDURE: Right radiographs. INDICATION: s/p fall TECHNIQUE: Frontal and oblique views of the right hip were obtained. COMPARISON: None FINDINGS: There is no evidence of fracture or dislocation. Bilateral hip replacements. The soft tiss ues are unremarkable. IMPRESSION: 1. No fracture or dislocation.
--- NOTE | 2024-06-30 08:08 | DVH ---
CLINICAL HISTORY: Right hip tense swelling. COMPARISON: None TECHNIQUE: Compression evaluation and color doppler evaluation of the deep veins of the right lower e xtremity was performed. Evaluation for augmentation and flow characteristics with doppler pulse wave imaging was performed. FINDINGS: There is normal compression, augmentation, and spontaneous phasic flow of the right common femoral vein and common femoral/ saphenous junction. There is acute DVT involving the femoral vein a nd popliteal vein with no compressibility or flow demonstrated. The right posterior tibial vein appea rs patent in the calf and ankle with flow demonstrated. There is a large complex, avascular fluid col lection in the medial aspect of the proximal right thigh measuring up to 11.6 x 5.9 x 8.6, likely hem atoma. IMPRESSION: 1. Acute DVT involving the right femoral and popliteal veins. 2. Large hematoma in the medial aspect of the proximal right thigh.
--- NOTE | 2024-06-30 08:45 | DVH ---
Left lower extremity venous duplex Clinical History: To rule out DVT Comparison: US RT LOWER DVT on DOS: 06/30/24 Findings: Duplex Doppler evaluation of the deep venous system of the left lower extremity from the common femor al vein to the popliteal vein including color Doppler and spectral/pulsed waveform analysis was perfo rmed. The common femoral vein demonstrates appropriate compressibility and waveform variability. There is compressibility/patency of the great saphenous vein at the proximal thigh. The femoral vein demonstrates appropriate compressibility and waveform variability. The deep femoral vein demonstrates appropriate compressibility and waveform variability. The popliteal vein demonstrates appropriate compressibility and waveform variability. There is normal compressibility at the tibioperoneal trunk. Impression: No left femoropopliteal venous thrombosis. If clinical concern/symptoms persist or worsen, short-interval follow-up study is suggested.
[2024-06-30] MEDS: SODIUM CHLORIDE 0.9% 1,000 ML IV SCH (10:19)
--- NOTE | 2024-06-30 10:26 | DVH ---
CLINICAL INDICATION: 88 years old, Female; Please rule out compartment syndrome/hematoma. TECHNIQUE: Noncontrast CT of the right femur was performed. Sagittal and coronal reformatted images a re provided. COMPARISON: CT LOWER EXTREMITY NON JOINT RIGH on DOS: 07/12/23 CT Dose: CTDI volume is 12.39 mGy. Dose-length product is 1338.01 mGy*cm FINDINGS: No fracture or dislocation. There is a right total hip replacement. The components are well aligned and well seated. There is streak artifact from the hardware which limits the evaluation. Bones are demineralized. There is a mixed attenuation fluid collection in the anterior medial right thigh which measures 9.6 c m transverse by 7.7 cm AP by 14.4 cm craniocaudal. There is a hematocrit level within the collection. This spans the proximal half of the thigh in longitudinal dimension and is centered in the quadricep s muscle. There is subcutaneous edema. Stool throughout the colon. IMPRESSION: 1. Fairly large intramuscular hematoma in the right thigh centered within the quadriceps muscles andrey uring up 14.4 cm in craniocaudal dimension. Compartment syndrome should be excluded clinically. 2. Regional subcutaneous edema. 3. Status post total right hip replacement. No evidence of acute fracture or hardware complication. All CT scans at this medical facility are performed using dose modulation techniques as appropriate t o a performed exam including the following: Automated exposure control was utilized; adjustment of th e MA and/or KV according to patient size; and use of iterative reconstruction technique.
--- NOTE | 2024-06-30 10:35 | DVH ---
CT ABDOMEN AND PELVIS WITHOUT CONTRAST CLINICAL HISTORY: Large proximal rt thigh hematoma TECHNIQUE: Multiple contiguous axial images of the abdomen and pelvis without intravenous contrast. The images were reformatted degenerate coronal and sagittal reconstructions. All CT scans at this medical facility are performed using dose modulation techniques as appropriate t o a performed exam including the following:Automated exposure control was utilized; adjustment of the MA and/or KV according to patient size; and use of iterative reconstruction technique. Radiation Dose Information: CT Dose: CTDI volume is 12 mGy. Dose-length product is 1338 mGy*cm Comparison: None FINDINGS: Evaluation of the abdomen and pelvis is limited without intravenous contrast. There are several small subcentimeter calculi in the lower pole of the right kidney. There is no evid ence of left renal calculus. There is no hydronephrosis. There is a nonspecific 4.5 x 3.4 cm circumscribed fluid collection with smooth thin vallecillo and few int ernal calcifications in the perirenal space posterior and inferior to the left kidney Gallbladder is not adequately seen on current study. The liver, pancreas, adrenal glands, and spl een appear within normal limits. There is no free fluid or free air. The stomach grossly appears unremarkable. The small and large bowel loops demonstrate normal caliber . There are multiple diverticula distal colon without evidence of acute diverticulitis. There is mod erate amount of stool throughout the colon, particularly rectum. Fecal impaction not excluded The visualized abdominal aorta and IVC appear within normal limits. There is large amount of streak artifact from bilateral hip arthroplasties limiting evaluation of the pelvis and proximal lower extremities. Visualized bladder grossly appears within normal limits. Part ial visualization of a postmenopausal uterus.. There is no gross pelvic fluid collection. There is a 3.2 cm cystic structure in the left pelvis likely an ovarian cyst There is partial visualization of moderate size intramuscular hematoma in the medial proximal right t high. Lung bases are clear. There is no acute osseous abnormality. IMPRESSION: 1. Partial visualization of moderate size intramuscular hematoma in the medial proximal right thigh. 2. Several small subcentimeter nonobstructive right lower pole renal calculi. 3. Nonspecific 4.5 cm circumscribed fluid collection with smooth thin vallecillo and few internal calcific ations in the perirenal space posterior and inferior to the left kidney. 4. Moderate amount of stool throughout the colon, particularly in the rectum. Fecal impaction is not excluded. 5. Distal colon diverticulosis without evidence of acute diverticulitis. 6. 3.2 cm cystic structure in the left pelvis likely an ovarian cyst. HS:Y
[2024-06-30 11:13] LABS: Hematocrit 25.7 % (36.0-46.0)
[2024-06-30 11:52] LABS: Basophils # (auto) 0 10 ^3/uL (0-0.2); Basophils % (auto) 0.2 % (0.0-2.0); Eosinophils # (auto) 0 10 ^3/uL (0-0.8); Eosinophils % (auto) 0.3 % (0.0-7.0); Hematocrit 25.9 % (36.0-46.0); Lymphocytes # (auto) 0.3 10 ^3/uL (0.4-5.4); Lymphocytes % (auto) 2.6 % (10.0-50.0); Mean Corpuscular Hemoglobin 32.9 pg (28.0-32.0); Mean Corpuscular Hgb Conc. 30.8 g/dL (32.0-36.0); Mean Corpuscular Volume 106.9 fL (80.0-100.0); Monocytes # (auto) 1.3 10 ^3/uL (0-1.3); Monocytes % (auto) 10.3 % (0.0-12.0); Neutrophils # (auto) 11.3 10 ^3/uL (1.6-8.6); Neutrophils % (auto) 86.6 % (37.0-80.0); Nucleated Red Blood Cells % 0.1 %; Platelet Count (auto) 182 10^3/uL (140-450); Red Blood Cells 2.42 10^6/uL (4.0-5.20); Red Cell Distribution Width 14.1 % (11.8-14.3)
--- NOTE | 2024-06-30 13:26 | DVHINCON2 ---
Date of service: Jun 30, 2024 History of Present Illness 88-year-old female status post fall now with the new onset right thigh hematoma with a drop in her hemoglobin. Past Medical History Atrial fibrillation. Hypertension. Past Surgical History Pacemaker placement. Family History: Alzheimer's disease Family History Noncontributory Social History No alcohol, tobacco, IV drug use Allergies: Coded Allergies: Sulfa Antibiotics (Verified Allergy, Unknown, 06/27/24) Home Meds Reported Medications Lisinopril (Lisinopril) 2.5 Mg Tab, 2.5 MG PO DAILY for 30 Days, MG 06/27/24 Furosemide (Furosemide) 20 Mg Tab, 20 MG PO DAILY for 30 Days, MG 06/27/24 Dabigatran Etexilate Mesylate (Dabigatran Etexilate) 110 Mg Cap, 110 MG PO BID, CAP 06/27/24 Gabapentin (Gabapentin) 100 Mg Cap, 100 MG PO BID for 30 Days, MG 06/27/24 Memantine Hydrochloride (Memantine HCl) 5 Mg Tab, 5 MG PO BID, TAB 06/27/24 Megestrol Acetate (Megestrol Acetate) 40 Mg Tab, 40 MG PO BID 06/27/24 Current Medications Current Medications Medications (Trade) Dose Ordered Sig/Efrain Route PRN Reason Start Time Stop Time Status Last Admin Doxycycline Monohydrate (Vibramycin Tablet) 100 mg Q12HR PO 06/29/24 22:00 06/30/24 10:18 Sodium Chloride 1,000 ml @ 60 mls/hr [id number] IV 06/29/24 19:45 06/30/24 06:47 DC 06/29/24 21:37 Sodium Chloride 1,000 ml @ 100 mls/hr Q10H IV 06/30/24 09:30 06/30/24 10:19 Vital Signs Vital Signs Date Time Temp Pulse Resp B/P (MAP) Pulse Ox O2 Delivery O2 Flow Rate FiO2 06/30/24 10:57 137/82 (100) 06/30/24 10:50 98 16 06/30/24 09:00 97.8 97 97.8 06/30/24 07:45 Room Air* 0 21 Physical Exam GEN: Elderly female in no acute distress HEENT: Normocephalic atraumatic. Moist mucous membranes. Anicteric sclerae. Right thigh: There is a large approximately 15 cm by 15 cm hematoma involving the right upper inner thigh without obvious erythema. Area slightly tender to palpation. No active bleeding. CT of the right lower extremity: There is a mixed attenuation fluid collection in the anterior medial right thigh measuring 9.6 x 7.7 x 14.4 cm with subcutaneous edema. Labs/Diagnostic Data Labs Test 06/30/24 10:38 06/30/24 04:39 06/30/24 02:28 06/29/24 17:23 Range/Units White Blood Count 13.0 H 4.4-10.8 10^3/uL Red Blood Count 2.42 L 4.0-5.20 10^6/uL Hemoglobin 8.0 L 12.2-16.2 g/dL Hematocrit 25.9 L 36.0-46.0 % Mean Corpuscular Volume 106.9 #H 80.0-100.0 fL Mean Corpuscular Hemoglobin 32.9 H 28.0-32.0 pg Mean Corpuscular Hemoglobin Concent 30.8 L 32.0-36.0 g/dL Red Cell Distribution Width 14.1 11.8-14.3 % Platelet Count 182 140-450 10^3/uL Mean Platelet Volume 9.7 6.9-10.8 fL Neutrophils (%) (Auto) 86.6 H 37.0-80.0 % Lymphocytes (%) (Auto) 2.6 L 10.0-50.0 % Monocytes (%) (Auto) 10.3 0.0-12.0 % Eosinophils (%) (Auto) 0.3 0.0-7.0 % Basophils (%) (Auto) 0.2 0.0-2.0 % Neutrophils # (Auto) 11.3 H 1.6-8.6 10 ^3/uL Lymphocytes # (Auto) 0.3 L 0.4-5.4 10 ^3/uL Monocytes # (Auto) 1.3 0-1.3 10 ^3/uL Eosinophils # (Auto) 0 0-0.8 10 ^3/uL Basophils # (Auto) 0 0-0.2 10 ^3/uL Nucleated Red Blood Cells 0.1 % Reticulocyte Count (auto) 1.84 H 0.5-1.5 % Lactate Dehydrogenase 259 H 120-246 U/L Creatine Kinase 675 H 34-145 U/L Sodium Level 137 136-145 mmol/L Potassium Level 4.0 3.5-5.1 mmol/L Chloride Level 107 98-107 mmol/L Carbon Dioxide Level 20 20-31 mmol/L Anion Gap 10 5-15 Blood Urea Nitrogen 21 9-23 mg/dL Creatinine 0.94 0.550-1.02 mg/dL Glomerular Filtration Rate Calc 58 >90 mL/min BUN/Creatinine Ratio 22.3 H 10.0-20.0 Serum Glucose 90 74-106 mg/dL Calcium Level 10.2 8.7-10.4 mg/dL Ammonia < 10 L 11-32 umol/L Test 06/29/24 17:00 06/27/24 08:50 06/26/24 20:03 06/26/24 09:52 Range/Units Blood Gas Specimen Type Arterial Blood Gas Sample Site Left radial Blood Gas Patient Temperature 37.0 Arterial Blood Date Drawn [id number] Arterial Blood pH 7.459 H 7.350-7.450 Arterial Blood Partial Pressure CO2 27.4 L 32.0-45.0 mmHg Arterial Blood Partial Pressure O2 71.7 L 83.0-108.0 mmHg Arterial Blood HCO3 19.0 L 21.0-28.0 mmol/L Arterial Blood Oxygen Saturation 93.0 L 94.0-98.0 % Arterial Blood Base Excess -3.5 L -2.0-3.0 mmol/L Arterial Blood Oxyhemoglobin 92.1 L 94.0-98.0 % Arterial Blood Carboxyhemoglobin 0.7 0.5-1.5 % Arterial Blood Methemoglobin 0.3 0.0-1.5 % Willie Test Yes Blood Gas Total Hemoglobin 12.70 12.0-16.0 g/dL Blood Gas Modality Room air FiO2 % 21.0 Magnesium Level 2.1 1.6-2.6 mg/dL Total Bilirubin 1.0 0.2-1.0 mg/dL Aspartate Amino Transferase (AST) 19 13-40 U/L Alanine Aminotransferase (ALT) < 9 7-40 U/L Alkaline Phosphatase 80 46-116 U/L Total Protein 7.1 5.7-8.2 g/dL Albumin 4.3 3.2-4.8 g/dL Influenza Type A Antigen Negative Negative Influenza Type B Antigen Positive Negative SARS-CoV-2 Antigen (Rapid) Negative NEGATIVE Hemoglobin A1c 5.1 <5.7 % A1C B-Type Natriuretic Peptide 79.46 0-100 pg/mL Vitamin D 25-Hydroxy 43.7 30.0-100 ng/mL Thyroid Stimulating Hormone (TSH) 1.80 0.55-4.78 uIU/mL Test 06/25/24 20:22 Range/Units Urine Color Colorless Yellow Urine Clarity Turbid H Clear Urine pH 5.5 5.0-9.0 Urine Specific [place] 1.013 1.001-1.035 Urine Protein Negative Negative Urine Ketones Negative Negative Urine Blood Trace H Negative /uL Urine Nitrite Negative Negative Urine Bilirubin Negative Negative Urine Urobilinogen Normal Negative mg/dL Urine Leukocyte Esterase 3+ Negative /uL Urine RBC 1 0 - 4 /hpf Urine WBC 4 0 - 5 /hpf Urine Squamous Epithelial Cells Few <5 /hpf Urine Bacteria Few H None Seen /hpf Urine Glucose Normal Normal mg/dL Microbiology Date/Time Source Procedure Growth Status 06/25/24 20:22 Voided Urine Urine Culture - Final Escherichia coli Complete Assessment 1. Right upper thigh hematoma Plan/Recommendation 1. We will continue to follow her hemoglobin. Transfuse as necessary. 2. If the hemoglobin drops further concerning for possible active bleeding, we will get a CT angio. 3. I spoke to Dr. Jon in the radiologist. At this point he does not see any obvious fluid collection that can be drained percutaneously at this time. However if repeat CT is performed we will reassess. Plan discussed with: Patient AWILDA CATALAN MD Jun 30, 2024 13:26
[2024-06-30 14:44] LABS: INR 1.31 (0.9-1.15); Partial Thromboplastin Time 34.6 SEC (24.5-34.5); Prothrombin Time 13.5 sec (9.3-11.8)
--- NOTE | 2024-06-30 18:25 | DVHPNRES ---
Progress Note Date Seen: Jun 30, 2024 Resident Creating Document: CHI CHISHOLM RESIDENT Medical Necessity Reason Pt with a Central, PICC or Fol: Yes Subjective Review of Systems This is a 88 years old female with past medical history of AFib, dementia and hypertension who presented to [facility] ED for an evaluation after mechanical fall. Patient reports feeling weakness, tripped and fall landing on her right shoulder with sustained right shoulder pain. Patient was seen and examined on the bedside. She is alert oriented x2 and following commands, on room air. Patient is complaining of leg pain and there is a large hematoma on the right proximal thigh, and peripheral pulses are palpable excluded the compartment syndrome. Surgery evaluated the patient and recommended to monitor H/ H, transfuse if hemoglobin drops and no obvious fluid collection that can be drained percutaneously at this time. Objective vital signs Vital Sign Date Time Temp Pulse Resp B/P (MAP) Pulse Ox O2 Delivery O2 Flow Rate FiO2 06/30/24 16:56 98.2 109 16 108/52 (70) 94 98.2 06/30/24 07:45 Room Air* 0 21 Total Intake and Output 06/29/24 06/29/24 06/30/24 15:00 23:00 07:00 Intake Total 50 ml 250 ml 200 ml Balance 50 ml 250 ml 200 ml medications Current Medications Medications Dose Ordered Sig/Efrain Route Start Time Stop Time Status Last Admin Dose Admin Ceftriaxone Sodium 50 ml @ 100 mls/hr DAILY@09 IV 06/26/24 09:00 06/30/24 10:19 100 MLS/HR Famotidine 20 mg DAILY IV 06/26/24 10:00 06/30/24 10:18 20 MG Hydralazine HCl 10 mg Q6HP PRN IV 06/26/24 04:00 Sodium Chloride 10 ml Q8HR IV 06/26/24 06:00 06/30/24 06:53 10 ML Acetaminophen/ Hydrocodone Bitart 1 tab Q4HP PRN PO 06/26/24 04:00 06/26/24 14:35 1 TAB Ondansetron HCl 4 mg Q4HP PRN IV 06/26/24 04:00 06/26/24 19:49 4 MG Docusate Sodium 100 mg BIDPRN PRN PO 06/26/24 04:00 06/27/24 10:09 100 MG Acetaminophen 650 mg Q6HP PRN PO 06/26/24 04:00 06/28/24 01:38 650 MG Morphine Sulfate 2 mg Q4HPRN PRN IV 06/26/24 04:00 06/30/24 08:55 2 MG Nitroglycerin 0.4 mg Q5MINP PRN SL 06/26/24 04:00 Morphine Sulfate 2 mg Q30M PRN IV 06/26/24 04:00 Memantine 5 mg DAILY PO 06/27/24 10:00 06/30/24 10:18 5 MG Oseltamivir Phosphate 30 mg Q12HR PO 06/27/24 10:00 07/01/24 22:01 06/30/24 10:18 30 MG Metoprolol Succinate 25 mg DAILY PO 06/28/24 10:00 06/29/24 09:55 25 MG Amiodarone HCl 200 mg Q12HR PO 06/28/24 22:00 06/30/24 10:18 200 MG Doxycycline Monohydrate 100 mg Q12HR PO 06/29/24 22:00 06/30/24 10:18 100 MG Sodium Chloride 1,000 ml @ 100 mls/hr Q10H IV 06/30/24 09:30 06/30/24 10:19 100 MLS/HR Examination Physical examination: General Appearance: Alert, Oriented X3, Cooperative, No acute distress HEENT: Atraumatic, PERRLA, EOMI, Mucous membrane moist/pink Respiratory: Decreased breath sound bilaterally. Cardiovascular: Regular rate, Normal S1, Normal S2, No murmurs, no chest wall tenderness Abdominal: Normal bowel sounds, Soft, No tenderness, No hepatospenomegaly, No masses Extremities: Large hematoma Rt proximal thigh, No clubbing, No cyanosis, No edema, palpable peripheral pulses. Skin: No rashes, No breakdown, No significant lesion Neuro: Bed bound, Normal speech, Strength at 4/5 X4 ext, Normal tone, Sensation intact, grossly intact cranial nerves. Psych/Mental Status: Mental status NL, Mood NL laboratory and microbiology Laboratory Tests 06/30/24 10:38 06/29/24 17:23 Test 06/29/24 17:23 Range/Units Serum Glucose 90 74-106 mg/dL Microbiology Date/Time Source Procedure Growth Status 06/25/24 20:22 Voided Urine Urine Culture - Final Escherichia coli Complete Labs and/or images reviewed: Labs reviewed by me, Image(s) reviewed by me Problem List/Assessment/Plan Problem List/Assessment/Plan Assessment and plan: # Acute DVT of Rt leg # Large hematoma in proximal rt thigh - Lower extremity doppler showed Acute DVT involving the right femoral and popliteal veins. Large hematoma in the medial aspect of the proximal right thigh - CT Rt femur demonstrated fairly large intramuscular hematoma in the right thigh centered within the quadriceps muscles measuring up 14.4 cm in craniocaudal dimension and regional subcutaneous edema. - Surgery evaluated the patient and recommended monitor H/H and transfuse as necessary. If the hemoglobin drops further concerning for possible active bleeding, we will get a CT angio. There is no obvious fluid collection that can be drained percutaneously at this time. - Hold therapeutic Lovenox due to the bleeding. - H/H: 01/30.9, 1 unit PRBC transfused - Monitor H/H # Acute hypoxic respiratory failure likely due to community-acquired Gram- positive / Gram-negative pneumonia # S/P mechanical fall # S/P AICD on rt side - Chest xray demonstrated new left basilar pneumonia and chronic central peribronchial thickening - IV ceftriaxone 1 g daily and IV doxycycline 100 mg b.i.d - CT head revealed no acute intracranial abnormality and moderate global cortical atrophy and chronic microvascular ischemic changes - Rt shoulder xray demonstrated Bony demineralization. No definite acute fracture. Mild acromioclavicular and glenohumeral joint arthrosis - Cardiology evaluated the patient and mentioned AV paced rhythm with underlying sinus tachycardia - A BiV-ICD interrogation revealed a normal function device with intermittent PMT episodes and a generator life of approximately 7.5 years - Cardiology recommended beta laurita in addition to full anticoagulation. # Hypercalcemia likely due to dehydration - ultrasound of the bladder revealed retention. - IV normal saline bolus 500 mL. # Paroxysmal atrial fibrillation with RVR and secondary hypercoagulable state [id number] score >4 - Metoprolol succinate XL 25 mg p.o. daily - Therapeutic Lovenox 1 mg/per kg body weight 12 hourly - Amiodarone 200 mg PO b.i.d - Echo revealed EF 55%with moderate to severe aortic stenosis and needs follow up echo in six-month to assess the degree of stenosis. # Acute cystitis - U/A consistent with UTI - Urine c/s revealed E.coli. - IV ceftriaxone I gm daily. 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 daily # Hypertensive heart disease - Lisinopril 2.5 mg p.o. daily Diet: Cardiac PUD prophylaxis: Famotidine 20 mg IV daily DVT prophylaxis: Hold due to the bleeding Disposition : Telemetry Patient is not stable to transfer to [place]. Plan discussed with Dr. Villarreal Plan discussed with: Patient, Other My Orders My Orders Orders - CHI CHISHOLM Procedure Category Date Status Time Ct R Femur Wo Contrast CT 06/30/24 Resulted 07:37 Lt Lower Dvt US 06/30/24 Resulted 06:55 Ct Ab Pel Wo Con-No CT 06/30/24 Resulted Oral Or Iv 09:22 Sodium Chloride 0.9% PHA 06/30/24 In Process 09:30 Insert Midline ORDERS 06/30/24 Transmitted 11:01 Date of Service: Jun 30, 2024 Billing Provider: KRUNAL HUFFMAN MD Common Visit Codes: [id number] INP/OBS CARE(HIGH) CHI CHISHOLM RESIDENT Jun 30, 2024 18:25 KRUNAL HUFFMAN MD Jul 04, 2024 09:41
[2024-06-30 20:13] LABS: Hematocrit 34.4 % (36.0-46.0); Hemoglobin 11.5 g/dL (12.2-16.2)
[2024-06-30] MEDS: D5W/SOD CHLO 0.9% 1,000 ML IV SCH (20:29)
[2024-07-01] VITALS (11 sets, daily range): BP systolic 100–131; BP diastolic 39–90; PULSE 75–110; RESP 14–20; TEMP 97.2–98.5; O2SAT 91–100
[2024-07-01 09:34] LABS: Chloride 112 mmol/L (98-107); Sodium 141 mmol/L (136-145)
[2024-07-01 09:35] LABS: Anion Gap 9 (5-15); Calcium 9.9 mg/dL (8.7-10.4)
[2024-07-01 09:36] LABS: Carbon Dioxide 20 mmol/L (20-31)
[2024-07-01 09:40] LABS: BUN/Creatinine Ratio 30.4 (10.0-20.0)
[2024-07-01 09:41] LABS: Blood Urea Nitrogen 38 mg/dL (9-23); Glucose 122 mg/dL (74-106)
[2024-07-01 09:46] LABS: Basophils # (auto) 0.1 10 ^3/uL (0-0.2); Basophils % (auto) 0.3 % (0.0-2.0); Eosinophils # (auto) 0 10 ^3/uL (0-0.8); Eosinophils % (auto) 0.1 % (0.0-7.0); Hematocrit 30.2 % (36.0-46.0); Lymphocytes # (auto) 0.5 10 ^3/uL (0.4-5.4); Lymphocytes % (auto) 2.6 % (10.0-50.0); Mean Corpuscular Hemoglobin 31.5 pg (28.0-32.0); Mean Corpuscular Volume 95.4 fL (80.0-100.0); Monocytes # (auto) 3.1 10 ^3/uL (0-1.3); Monocytes % (auto) 15.5 % (0.0-12.0); Neutrophils # (auto) 16.2 10 ^3/uL (1.6-8.6); Neutrophils % (auto) 81.5 % (37.0-80.0); Platelet Count (auto) 181 10^3/uL (140-450); Red Blood Cells 3.16 10^6/uL (4.0-5.20); Red Cell Distribution Width 15.5 % (11.8-14.3); White Blood Cell 19.9 10^3/uL (4.4-10.8)
[2024-07-01 09:58] LABS: Creatine Kinase IFCC 1475 U/L (34-145)
[2024-07-01] MEDS: IOHEXOL 350 MG/ML 100ML IJ ONE ×2 (11:17→13:03)
--- NOTE | 2024-07-01 13:33 | DVHPN2 ---
Progress Note - Dictate Date Seen: Jul 01, 2024 Medical Necessity Reason Pt with a Central, PICC or Fol: Yes Subjective E: PRBC transfused. no complaints. vital signs Vital Sign Date Time Temp Pulse Resp B/P (MAP) Pulse Ox O2 Delivery O2 Flow Rate FiO2 07/01/24 10:00 82 117/64 07/01/24 08:00 98.5 18 92 98.5 06/30/24 23:00 Room Air* 0 21 Total Intake and Output 06/30/24 06/30/24 07/01/24 15:00 23:00 07:00 Intake Total 50 ml 920 ml 220 ml Balance 50 ml 920 ml 220 ml medications Current Medications Medications Dose Ordered Sig/Efrain Route Start Time Stop Time Status Last Admin Dose Admin Ceftriaxone Sodium 50 ml @ 100 mls/hr DAILY@09 IV 06/26/24 09:00 07/01/24 09:00 100 MLS/HR Famotidine 20 mg DAILY IV 06/26/24 10:00 07/01/24 10:00 20 MG Hydralazine HCl 10 mg Q6HP PRN IV 06/26/24 04:00 Sodium Chloride 10 ml Q8HR IV 06/26/24 06:00 06/30/24 21:43 10 ML Acetaminophen/ Hydrocodone Bitart 1 tab Q4HP PRN PO 06/26/24 04:00 06/30/24 21:43 1 TAB Ondansetron HCl 4 mg Q4HP PRN IV 06/26/24 04:00 06/26/24 19:49 4 MG Docusate Sodium 100 mg BIDPRN PRN PO 06/26/24 04:00 06/27/24 10:09 100 MG Acetaminophen 650 mg Q6HP PRN PO 06/26/24 04:00 06/28/24 01:38 650 MG Morphine Sulfate 2 mg Q4HPRN PRN IV 06/26/24 04:00 06/30/24 08:55 2 MG Nitroglycerin 0.4 mg Q5MINP PRN SL 06/26/24 04:00 Morphine Sulfate 2 mg Q30M PRN IV 06/26/24 04:00 Memantine 5 mg DAILY PO 06/27/24 10:00 07/01/24 10:00 5 MG Oseltamivir Phosphate 30 mg Q12HR PO 06/27/24 10:00 07/01/24 22:01 07/01/24 10:00 30 MG Metoprolol Succinate 25 mg DAILY PO 06/28/24 10:00 07/01/24 10:00 25 MG Amiodarone HCl 200 mg Q12HR PO 06/28/24 22:00 07/01/24 10:00 200 MG Doxycycline Monohydrate 100 mg Q12HR PO 06/29/24 22:00 07/01/24 10:00 100 MG Dextrose/Sodium Chloride 1,000 ml @ 50 mls/hr Q20H IV 06/30/24 19:30 06/30/24 20:29 50 MLS/HR objective GEN: NAD RIGHT THIGH: slt increased size with min ecchymosis with TTP. laboratory and microbiology Laboratory Tests 07/01/24 08:58 Test 07/01/24 08:58 Range/Units Serum Glucose 122 H 74-106 mg/dL Assessment/Plan A: 1. Right upper thigh hematoma 2. a fib P: 1. repeat CT right thigh tomorrow Plan discussed with: AWILDA Singh MD Jul 01, 2024 13:33
--- NOTE | 2024-07-01 13:52 | DVH ---
CT CT ANGIO R LOWER EXT INDICATION: RIGHT PROXIMAL THIGH HEMATOMA EXAM DATE: 07/01/2024 01:08 PM COMPARISON: 06/30/24 RADIATION DOSE: CTDIvol: 3.95 mGy, DLP: 627.69 mGy*cm PROCEDURE: CT angiographic images were obtained of the 3.95 lower extremity. Coronal and sagittal rec onstructions were created. FINDINGS: Common femoral artery: Patent . Superficial femoral artery: Patent . Profunda artery: Patent . Popliteal artery: Patent . Anterior tibial artery: Patent . Posterior tibial artery: Patent . Peroneal artery: Patent . Hip arthroplasty material creates beam hardening artifact which limits evaluation. Interval enlargeme nt of the right thigh hematoma with a contrast blush seen on arterial phase imaging. Large fecal ball is noted in the rectum. IMPRESSION: Interval enlargement of the right thigh hematoma with a contrast blush seen on arterial phase imaging within the hematoma. Critical Result: Active Bleeding Findings discussed with Dr. Live , at 07/01/2024 01:48 PM and acknowledged receipt and understanding o f the findings.
--- NOTE | 2024-07-01 14:29 | DVHPN2 ---
Consult Progress Note Objective vital signs Vital Sign Date Time Temp Pulse Resp B/P (MAP) Pulse Ox O2 Delivery O2 Flow Rate FiO2 07/01/24 10:00 82 117/64 07/01/24 08:00 98.5 18 92 98.5 06/30/24 23:00 Room Air* 0 21 Total Intake and Output 06/30/24 06/30/24 07/01/24 15:00 23:00 07:00 Intake Total 50 ml 920 ml 220 ml Balance 50 ml 920 ml 220 ml medications Current Medications Medications Dose Ordered Sig/Efrain Route Start Time Stop Time Status Last Admin Dose Admin Ceftriaxone Sodium 50 ml @ 100 mls/hr DAILY@09 IV 06/26/24 09:00 07/01/24 09:00 100 MLS/HR Famotidine 20 mg DAILY IV 06/26/24 10:00 07/01/24 10:00 20 MG Hydralazine HCl 10 mg Q6HP PRN IV 06/26/24 04:00 Sodium Chloride 10 ml Q8HR IV 06/26/24 06:00 06/30/24 21:43 10 ML Acetaminophen/ Hydrocodone Bitart 1 tab Q4HP PRN PO 06/26/24 04:00 06/30/24 21:43 1 TAB Ondansetron HCl 4 mg Q4HP PRN IV 06/26/24 04:00 06/26/24 19:49 4 MG Docusate Sodium 100 mg BIDPRN PRN PO 06/26/24 04:00 06/27/24 10:09 100 MG Acetaminophen 650 mg Q6HP PRN PO 06/26/24 04:00 06/28/24 01:38 650 MG Morphine Sulfate 2 mg Q4HPRN PRN IV 06/26/24 04:00 06/30/24 08:55 2 MG Nitroglycerin 0.4 mg Q5MINP PRN SL 06/26/24 04:00 Morphine Sulfate 2 mg Q30M PRN IV 06/26/24 04:00 Memantine 5 mg DAILY PO 06/27/24 10:00 07/01/24 10:00 5 MG Oseltamivir Phosphate 30 mg Q12HR PO 06/27/24 10:00 07/01/24 22:01 07/01/24 10:00 30 MG Metoprolol Succinate 25 mg DAILY PO 06/28/24 10:00 07/01/24 10:00 25 MG Amiodarone HCl 200 mg Q12HR PO 06/28/24 22:00 07/01/24 10:00 200 MG Doxycycline Monohydrate 100 mg Q12HR PO 06/29/24 22:00 07/01/24 10:00 100 MG Dextrose/Sodium Chloride 1,000 ml @ 50 mls/hr Q20H IV 06/30/24 19:30 06/30/24 20:29 50 MLS/HR Examination: GENERAL:Abnormal (Generalized weakness), LUNGS:Normal, CVS:Abnormal (Large hematoma to right thigh) laboratory and microbiology Laboratory Tests 07/01/24 08:58 Test 07/01/24 08:58 Range/Units Serum Glucose 122 H 74-106 mg/dL Problem List/Assessment/Plan Problem List/Assessment/Plan Large hematoma to right thigh Acute DVT of right femoral and popliteal veins Sepsis with pneumonia/influenza B Presence of biventricular ICD, [place] [employer] Paroxysmal atrial fibrillation, now sinus tachycardia, on Pradaxa Hypertension Dementia Plan/Recommendation (Dr. Mejia) Cardiology has been asked to re-evaluate this patient who now presents with a large hematoma to right thigh. Per primary team, the patient has now developed a large hematoma to her right thigh and was also found to have an acute DVT involving the right femoral and popliteal veins. The patient was on therapeutic Lovenox during this admission until large hematoma was identified. The primary team has ordered a CT angiogram which revealed active bleeding, and the patient will undergo an embolization today with radiology. In the meantime, we will recommend for the patient to stop anticoagulation given active bleed. Patient with known paroxysmal atrial fibrillation to be reassessed for anticoagulation in the future. Given that the patient also has an acute DVT, the patient may benefit from an IVC filter. Thank you for allowing us to care for this patient. Please call with any questions or concerns. This medical document was created using an electronic medical record system with voice recognition software and computerized dictation system. Although this document has been carefully reviewed, there might still be some phonetic and typographical errors. Occasional wrong-word or ``sound-alike substitutions may have occurred due to the inherent limitations of voice recognition software. These areas are purely typographical due to imperfections of the software programs and do not reflect any compromise in the patient's medical care. Please read the chart carefully and recognize, using context, where these substitutions have occurred. Plan discussed with: Patient Date of Service: Jul 01, 2024 Billing Provider: MYRA MEJIA MD Common Visit Codes: [id number] INP/OBS CARE(HIGH) [facility] Jul 01, 2024 14:29
[2024-07-01] MEDS: HEPARIN IN NS 1000Units/500mL 1,500 ML ONE (14:56)
[2024-07-01] MEDS: IODIXANOL 320MG/ML 100ML BTL IV ONE (14:56)
[2024-07-01] MEDS: MIDAZOLAM HCL 2MG/2ML 2ml VIAL (1mg/ml) ONE (15:16)
[2024-07-01] MEDS: LIDOCAINE 2%HCL (LOCAL ANESTH.) INJ 20ML MDV ONE (15:16)
[2024-07-01] MEDS: fentaNYL CITRATE 100 MCG/2 ML VL ONE (15:16)
--- NOTE | 2024-07-01 16:36 | DVH ---
XY FLUOROGUIDANCE FOR NEEDLE PLAC, HISTORY: Large right thigh hematoma with active extravasation seen on CT angiogram. PROCEDURE: Informed consent was obtained. The patient was placed on the fluoroscopic table in supine position. The left groin was prepped with chlorhexadine which was allowed to dry and draped in steril e fashion. Time out was performed. IV sedation and 1% Lidocaine were administered. The right common f emoral artery was accessed using a micropuncture set and over a guide wire, a 6 Fr vascular sheath wa s placed. Then using the Chadwick catheter and glide advantage wire, the right common femoral artery was accessed. The catheter was then repositioned into the right profunda artery and angiograms were perfo rmed in 2 projections. No contrast extravasation was visualized. The catheter was removed and Angiose al device was used for hemostasis. No immediate complication was identified. DAP 434 FLUOROSCOPY TIME: 5.5 minutes. CONTRAST USED: 30 mL SEDATION: Dr. Sirisha Jon was personally responsible for the administration of moderate sedation during the procedure performed, including the use of an independent trained observer who had no other duties during the procedure. The drugs utilized were IV fentanyl and versed (see nursing log for details). The total time of supervision by the attending physician was approximately 45 minutes. FINDINGS: Tortuous aorta visualized. Patent right common femoral, superficial femoral, and profunda a rteries. Visualization of muscular branches from the profunda artery without areas of contrast extrav asation. Thus, no embolization was performed. IMPRESSION: Patent right common femoral, superficial femoral, and profunda arteries. Visualization of muscular br anches from the profunda artery in 2 projections without areas of contrast extravasation. Thus, no em bolization was performed. Plan: left leg straight for 2 hours.
--- NOTE | 2024-07-01 17:30 | DVHPNRES ---
Progress Note Date Seen: Jul 01, 2024 Resident Creating Document: CHI CHISHOLM RESIDENT Medical Necessity Reason Pt with a Central, PICC or Fol: Yes Subjective Review of Systems This is a 88 years old female with past medical history of AFib, dementia and hypertension who presented to [facility] ED for an evaluation after mechanical fall. Patient reports feeling weakness, tripped and fall landing on her right shoulder with sustained right shoulder pain. Patient was seen and examined on the bedside. She is alert oriented x2 and following commands, on room air. Patient is complaining of leg pain and there is a large hematoma on the right proximal thigh, and peripheral pulses are palpable excluded the compartment syndrome. Surgery evaluated the patient and recommended to monitor H/ H, transfuse if hemoglobin drops and no obvious fluid collection that can be drained percutaneously at this time. CT angio of rt femur demonstrated Interval enlargement of the right thigh hematoma with a contrast blush seen on arterial phase imaging within the hematoma. Surgery consulted IR for possible embolization due to possible acute bleeding. IR recommended Patent right common femoral, superficial femoral, and profunda arteries. Visualization of muscular branches from the profunda artery in 2 projections without areas of contrast extravasation. Thus, no embolization was performed. Reconsulted Cardiology again and recommended discontinuing therapeutic Lovenox because of the large right proximal hematoma use and recommended IVC filter for future anticoagulation. Objective vital signs Vital Sign Date Time Temp Pulse Resp B/P (MAP) Pulse Ox O2 Delivery O2 Flow Rate FiO2 07/01/24 13:00 98.2 110 18 111/51 (71) 92 98.2 07/01/24 08:00 Room Air* 0 21 Total Intake and Output 06/30/24 06/30/24 07/01/24 15:00 23:00 07:00 Intake Total 50 ml 920 ml 220 ml Balance 50 ml 920 ml 220 ml medications Current Medications Medications Dose Ordered Sig/Efrain Route Start Time Stop Time Status Last Admin Dose Admin Ceftriaxone Sodium 50 ml @ 100 mls/hr DAILY@09 IV 06/26/24 09:00 07/01/24 09:00 100 MLS/HR Famotidine 20 mg DAILY IV 06/26/24 10:00 07/01/24 10:00 20 MG Hydralazine HCl 10 mg Q6HP PRN IV 06/26/24 04:00 Sodium Chloride 10 ml Q8HR IV 06/26/24 06:00 06/30/24 21:43 10 ML Acetaminophen/ Hydrocodone Bitart 1 tab Q4HP PRN PO 06/26/24 04:00 06/30/24 21:43 1 TAB Ondansetron HCl 4 mg Q4HP PRN IV 06/26/24 04:00 06/26/24 19:49 4 MG Docusate Sodium 100 mg BIDPRN PRN PO 06/26/24 04:00 06/27/24 10:09 100 MG Acetaminophen 650 mg Q6HP PRN PO 06/26/24 04:00 06/28/24 01:38 650 MG Morphine Sulfate 2 mg Q4HPRN PRN IV 06/26/24 04:00 06/30/24 08:55 2 MG Nitroglycerin 0.4 mg Q5MINP PRN SL 06/26/24 04:00 Morphine Sulfate 2 mg Q30M PRN IV 06/26/24 04:00 Memantine 5 mg DAILY PO 06/27/24 10:00 07/01/24 10:00 5 MG Oseltamivir Phosphate 30 mg Q12HR PO 06/27/24 10:00 07/01/24 22:01 07/01/24 10:00 30 MG Metoprolol Succinate 25 mg DAILY PO 06/28/24 10:00 07/01/24 10:00 25 MG Amiodarone HCl 200 mg Q12HR PO 06/28/24 22:00 07/01/24 10:00 200 MG Doxycycline Monohydrate 100 mg Q12HR PO 06/29/24 22:00 07/01/24 10:00 100 MG Dextrose/Sodium Chloride 1,000 ml @ 50 mls/hr Q20H IV 06/30/24 19:30 06/30/24 20:29 50 MLS/HR Examination Physical examination: General Appearance: Alert, Oriented X3, Cooperative, No acute distress HEENT: Atraumatic, PERRLA, EOMI, Mucous membrane moist/pink Respiratory: Decreased breath sound bilaterally. Cardiovascular: Regular rate, Normal S1, Normal S2, No murmurs, no chest wall tenderness Abdominal: Normal bowel sounds, Soft, No tenderness, No hepatospenomegaly, No masses Extremities: Large hematoma Rt proximal thigh, No clubbing, No cyanosis, No edema, palpable peripheral pulses. Skin: No rashes, No breakdown, No significant lesion Neuro: Bed bound, Normal speech, Strength at 4/5 X4 ext, Normal tone, Sensation intact, grossly intact cranial nerves. Psych/Mental Status: Mental status NL, Mood NL laboratory and microbiology Laboratory Tests 07/01/24 08:58 Test 07/01/24 08:58 Range/Units Serum Glucose 122 H 74-106 mg/dL Microbiology Date/Time Source Procedure Growth Status 06/25/24 20:22 Voided Urine Urine Culture - Final Escherichia coli Complete Labs and/or images reviewed: Labs reviewed by me, Image(s) reviewed by me Problem List/Assessment/Plan Problem List/Assessment/Plan Assessment and plan: # Acute DVT of Rt leg # Large hematoma in proximal rt thigh - Lower extremity doppler showed Acute DVT involving the right femoral and popliteal veins. Large hematoma in the medial aspect of the proximal right thigh - CT Rt femur demonstrated fairly large intramuscular hematoma in the right thigh centered within the quadriceps muscles measuring up 14.4 cm in craniocaudal dimension and regional subcutaneous edema. - Surgery evaluated the patient and recommended monitor H/H and transfuse as necessary. If the hemoglobin drops further concerning for possible active bleeding, we will get a CT angio. There is no obvious fluid collection that can be drained percutaneously at this time. - Hold therapeutic Lovenox due to the bleeding. - H/H: 04/06.2, 1 unit PRBC transfused - CT angio of rt femur demonstrated Interval enlargement of the right thigh hematoma with a contrast blush seen on arterial phase imaging within the hematoma. - Surgery consulted IR for possible embolization due to possible acute bleeding. - IR recommended Patent right common femoral, superficial femoral, and profunda arteries. Visualization of muscular branches from the profunda artery in 2 projections without areas of contrast extravasation. Thus, no embolization was performed. - Reconsulted Cardiology again and recommended discontinuing therapeutic Lovenox because of the large right proximal hematoma use and recommended IVC filter for future anticoagulation # Acute hypoxic respiratory failure likely due to community-acquired Gram- positive / Gram-negative pneumonia # S/P mechanical fall # S/P AICD on rt side - Chest xray demonstrated new left basilar pneumonia and chronic central peribronchial thickening - IV ceftriaxone 1 g daily and IV doxycycline 100 mg b.i.d - CT head revealed no acute intracranial abnormality and moderate global cortical atrophy and chronic microvascular ischemic changes - Rt shoulder xray demonstrated Bony demineralization. No definite acute fracture. Mild acromioclavicular and glenohumeral joint arthrosis - Cardiology evaluated the patient and mentioned AV paced rhythm with underlying sinus tachycardia - A BiV-ICD interrogation revealed a normal function device with intermittent PMT episodes and a generator life of approximately 7.5 years - Reconsulted Cardiology again and recommended discontinuing therapeutic Lovenox because of the large right proximal hematoma use and recommended IVC filter for future anticoagulation # Hypercalcemia likely due to dehydration - ultrasound of the bladder revealed retention. - IV normal saline bolus 500 mL. # Paroxysmal atrial fibrillation with RVR and secondary hypercoagulable state [id number] score >4 - Metoprolol succinate XL 25 mg p.o. daily - Amiodarone 200 mg PO b.i.d - Echo revealed EF 55%with moderate to severe aortic stenosis and needs follow up echo in six-month to assess the degree of stenosis. # Acute cystitis - U/A consistent with UTI - Urine c/s revealed E.coli. - IV ceftriaxone I gm daily. 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 daily # Hypertensive heart disease - Lisinopril 2.5 mg p.o. daily Diet: Cardiac PUD prophylaxis: Famotidine 20 mg IV daily DVT prophylaxis: Hold due to the bleeding Disposition : Telemetry Patient is not stable to transfer to [place]. Plan discussed with Dr. Villarreal Plan discussed with: Patient, Spouse, Other My Orders My Orders Orders - CHI CHISHOLM Procedure Category Date Status Time * Us Administrative Law Judge CONS 07/01/[address] Angio R Lower Ext CT 07/01/24 Resulted 11:15 Discharge DISCHARGE 07/01/24 Transmitted 12:50 * Us Administrative Law Judge CONS 07/01/24 Transmitted Consult Date of Service: Jul 01, 2024 Billing Provider: KRUNAL HUFFMAN MD Common Visit Codes: [id number] INP/OBS CARE(HIGH) CHI CHISHOLM Jul 01, 2024 17:30 KRUNAL HUFFMAN MD Jul 04, 2024 09:56
[2024-07-02] VITALS (9 sets, daily range): BP systolic 102–144; BP diastolic 33–80; PULSE 77–101; RESP 17–19; TEMP 97.2–97.9; O2SAT 94–98
--- NOTE | 2024-07-02 10:38 | DVHPNRES ---
Progress Note Date Seen: Jul 02, 2024 Resident Creating Document: CHI CHISHOLM RESIDENT Medical Necessity Reason Pt with a Central, PICC or Fol: Yes Subjective Review of Systems Objective vital signs Vital Sign Date Time Temp Pulse Resp B/P (MAP) Pulse Ox O2 Delivery O2 Flow Rate FiO2 07/02/24 08:30 97.9 101 19 126/69 (88) 95 97.9 07/01/24 20:00 Room Air* 0 21 Total Intake and Output 07/01/24 07/01/24 07/02/24 15:00 23:00 07:00 Intake Total 50 ml 120 ml 0 ml Output Total 1000 ml Balance 50 ml 120 ml -1000 ml medications Current Medications Medications Dose Ordered Sig/Efrain Route Start Time Stop Time Status Last Admin Dose Admin Ceftriaxone Sodium 50 ml @ 100 mls/hr DAILY@09 IV 06/26/24 09:00 07/01/24 09:00 100 MLS/HR Famotidine 20 mg DAILY IV 06/26/24 10:00 07/01/24 10:00 20 MG Hydralazine HCl 10 mg Q6HP PRN IV 06/26/24 04:00 Sodium Chloride 10 ml Q8HR IV 06/26/24 06:00 07/02/24 06:23 10 ML Acetaminophen/ Hydrocodone Bitart 1 tab Q4HP PRN PO 06/26/24 04:00 06/30/24 21:43 1 TAB Ondansetron HCl 4 mg Q4HP PRN IV 06/26/24 04:00 06/26/24 19:49 4 MG Docusate Sodium 100 mg BIDPRN PRN PO 06/26/24 04:00 06/27/24 10:09 100 MG Acetaminophen 650 mg Q6HP PRN PO 06/26/24 04:00 06/28/24 01:38 650 MG Morphine Sulfate 2 mg Q4HPRN PRN IV 06/26/24 04:00 06/30/24 08:55 2 MG Nitroglycerin 0.4 mg Q5MINP PRN SL 06/26/24 04:00 Morphine Sulfate 2 mg Q30M PRN IV 06/26/24 04:00 Memantine 5 mg DAILY PO 06/27/24 10:00 07/01/24 10:00 5 MG Metoprolol Succinate 25 mg DAILY PO 06/28/24 10:00 07/01/24 10:00 25 MG Amiodarone HCl 200 mg Q12HR PO 06/28/24 22:00 07/01/24 21:44 200 MG Doxycycline Monohydrate 100 mg Q12HR PO 06/29/24 22:00 07/01/24 21:44 100 MG Dextrose/Sodium Chloride 1,000 ml @ 50 mls/hr Q20H IV 06/30/24 19:30 06/30/24 20:29 50 MLS/HR laboratory and microbiology Laboratory Tests 07/01/24 08:58 Test 07/01/24 08:58 Range/Units Serum Glucose 122 H 74-106 mg/dL Microbiology Date/Time Source Procedure Growth Status 06/25/24 20:22 Voided Urine Urine Culture - Final Escherichia coli Complete Problem List/Assessment/Plan Problem List/Assessment/Plan Assessment and plan: # Acute DVT of Rt leg # Large hematoma in proximal rt thigh - Lower extremity doppler showed Acute DVT involving the right femoral and popliteal veins. Large hematoma in the medial aspect of the proximal right thigh - CT Rt femur demonstrated fairly large intramuscular hematoma in the right thigh centered within the quadriceps muscles measuring up 14.4 cm in craniocaudal dimension and regional subcutaneous edema. - Surgery evaluated the patient and recommended monitor H/H and transfuse as necessary. If the hemoglobin drops further concerning for possible active bleeding, we will get a CT angio. There is no obvious fluid collection that can be drained percutaneously at this time. - Hold therapeutic Lovenox due to the bleeding. - H/H: 04/06.2, 1 unit PRBC transfused - CT angio of rt femur demonstrated Interval enlargement of the right thigh hematoma with a contrast blush seen on arterial phase imaging within the hematoma. - Surgery consulted IR for possible embolization due to possible acute bleeding. - IR recommended Patent right common femoral, superficial femoral, and profunda arteries. Visualization of muscular branches from the profunda artery in 2 projections without areas of contrast extravasation. Thus, no embolization was performed. - Reconsulted Cardiology again and recommended discontinuing therapeutic Lovenox because of the large right proximal hematoma use and recommended IVC filter for future anticoagulation # Acute hypoxic respiratory failure likely due to community-acquired Gram- positive / Gram-negative pneumonia # S/P mechanical fall # S/P AICD on rt side - Chest xray demonstrated new left basilar pneumonia and chronic central peribronchial thickening - IV ceftriaxone 1 g daily and IV doxycycline 100 mg b.i.d - CT head revealed no acute intracranial abnormality and moderate global cortical atrophy and chronic microvascular ischemic changes - Rt shoulder xray demonstrated Bony demineralization. No definite acute fracture. Mild acromioclavicular and glenohumeral joint arthrosis - Cardiology evaluated the patient and mentioned AV paced rhythm with underlying sinus tachycardia - A BiV-ICD interrogation revealed a normal function device with intermittent PMT episodes and a generator life of approximately 7.5 years - Reconsulted Cardiology again and recommended discontinuing therapeutic Lovenox because of the large right proximal hematoma use and recommended IVC filter for future anticoagulation # Hypercalcemia likely due to dehydration - ultrasound of the bladder revealed retention. - IV normal saline bolus 500 mL. # Paroxysmal atrial fibrillation with RVR and secondary hypercoagulable state [id number] score >4 - Metoprolol succinate XL 25 mg p.o. daily - Amiodarone 200 mg PO b.i.d - Echo revealed EF 55%with moderate to severe aortic stenosis and needs follow up echo in six-month to assess the degree of stenosis. # Acute cystitis - U/A consistent with UTI - Urine c/s revealed E.coli. - IV ceftriaxone I gm daily. 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 daily # Hypertensive heart disease - Lisinopril 2.5 mg p.o. daily Diet: Cardiac PUD prophylaxis: Famotidine 20 mg IV daily DVT prophylaxis: Hold due to the bleeding Disposition : Telemetry Patient is not stable to transfer to [place]. Plan discussed with Dr. Villarreal My Orders My Orders Orders - CHI CHISHOLM Procedure Category Date Status Time * Associate Professor Of Kinesiology CONS 07/01/[address] Angio R Lower Ext CT 07/01/24 Resulted 11:15 Discharge DISCHARGE 07/01/24 Transmitted 12:50 * Associate Professor Of Kinesiology CONS 07/01/24 Transmitted Consult Basic Metabolic Panel LAB 07/02/24 Logged 04:00 Complete Blood Count LAB 07/02/24 Logged 04:00 Lactic Acid W/ Reflex LAB 07/01/24 Logged Order 04:00 Creatine Kinase LAB 07/02/24 Logged 04:00 CHI CHISHOLM RESIDENT Jul 02, 2024 10:38
[2024-07-02 10:59] LABS: Basophils # (auto) 0 10 ^3/uL (0-0.2); Eosinophils # (auto) 0 10 ^3/uL (0-0.8); Eosinophils % (auto) 0.2 % (0.0-7.0); Hemoglobin 8.2 g/dL (12.2-16.2); Lymphocytes # (auto) 0.6 10 ^3/uL (0.4-5.4); Monocytes # (auto) 2.3 10 ^3/uL (0-1.3); Nucleated Red Blood Cells % 0.1 %
[2024-07-02 11:03] LABS: Basophils % (auto) 0.1 % (0.0-2.0); Hematocrit 24.9 % (36.0-46.0); Lymphocytes % (auto) 3.5 % (10.0-50.0); Mean Corpuscular Hemoglobin 31.7 pg (28.0-32.0); Mean Corpuscular Hgb Conc. 32.9 g/dL (32.0-36.0); Mean Corpuscular Volume 96.3 fL (80.0-100.0); Monocytes % (auto) 13.2 % (0.0-12.0); Neutrophils # (auto) 14.7 10 ^3/uL (1.6-8.6); Platelet Count (auto) 200 10^3/uL (140-450); Red Blood Cells 2.58 10^6/uL (4.0-5.20); Red Cell Distribution Width 15.2 % (11.8-14.3); White Blood Cell 17.7 10^3/uL (4.4-10.8)
[2024-07-02 11:14] LABS: Potassium 4.1 mmol/L (3.5-5.1); Sodium 143 mmol/L (136-145)
[2024-07-02 11:15] LABS: Anion Gap 12 (5-15); Calcium 9.8 mg/dL (8.7-10.4); Carbon Dioxide 19 mmol/L (20-31); Chloride 112 mmol/L (98-107)
[2024-07-02 11:20] LABS: Glucose 98 mg/dL (74-106)
[2024-07-02 11:21] LABS: Blood Urea Nitrogen 49 mg/dL (9-23)
[2024-07-02 11:54] LABS: Creatine Kinase IFCC 1612 U/L (34-145)
--- NOTE | 2024-07-02 14:39 | DVHPN2 ---
Progress Note - Dictate Date Seen: Jul 02, 2024 Medical Necessity Reason Pt with a Central, PICC or Fol: Yes Subjective E: embolization cancelled yesterday as it did not show any active bleeding. no complaints. vital signs Vital Sign Date Time Temp Pulse Resp B/P (MAP) Pulse Ox O2 Delivery O2 Flow Rate FiO2 07/02/24 12:30 97.9 99 18 132/66 (88) 96 97.9 07/02/24 08:00 Room Air* 0 21 Total Intake and Output 07/01/24 07/01/24 07/02/24 15:00 23:00 07:00 Intake Total 50 ml 120 ml 0 ml Output Total 1000 ml Balance 50 ml 120 ml -1000 ml medications Current Medications Medications Dose Ordered Sig/Efrain Route Start Time Stop Time Status Last Admin Dose Admin Ceftriaxone Sodium 50 ml @ 100 mls/hr DAILY@09 IV 06/26/24 09:00 07/02/24 09:00 100 MLS/HR Famotidine 20 mg DAILY IV 06/26/24 10:00 07/02/24 10:00 20 MG Hydralazine HCl 10 mg Q6HP PRN IV 06/26/24 04:00 Sodium Chloride 10 ml Q8HR IV 06/26/24 06:00 07/02/24 06:23 10 ML Acetaminophen/ Hydrocodone Bitart 1 tab Q4HP PRN PO 06/26/24 04:00 06/30/24 21:43 1 TAB Ondansetron HCl 4 mg Q4HP PRN IV 06/26/24 04:00 06/26/24 19:49 4 MG Docusate Sodium 100 mg BIDPRN PRN PO 06/26/24 04:00 06/27/24 10:09 100 MG Acetaminophen 650 mg Q6HP PRN PO 06/26/24 04:00 06/28/24 01:38 650 MG Morphine Sulfate 2 mg Q4HPRN PRN IV 06/26/24 04:00 06/30/24 08:55 2 MG Nitroglycerin 0.4 mg Q5MINP PRN SL 06/26/24 04:00 Morphine Sulfate 2 mg Q30M PRN IV 06/26/24 04:00 Memantine 5 mg DAILY PO 06/27/24 10:00 07/02/24 10:00 5 MG Metoprolol Succinate 25 mg DAILY PO 06/28/24 10:00 07/02/24 10:00 25 MG Amiodarone HCl 200 mg Q12HR PO 06/28/24 22:00 07/02/24 10:00 200 MG Doxycycline Monohydrate 100 mg Q12HR PO 06/29/24 22:00 07/02/24 10:00 100 MG Dextrose/Sodium Chloride 1,000 ml @ 50 mls/hr Q20H IV 06/30/24 19:30 06/30/24 20:29 50 MLS/HR objective GEN: NAD RIGHT THIGH: slt softer hematoma. min ecchymosis with TTP. laboratory and microbiology Laboratory Tests 07/02/24 10:37 Test 07/02/24 10:37 Range/Units Serum Glucose 98 74-106 mg/dL Assessment/Plan A: 1. Right upper thigh hematoma P: 1. cont curr tx. Plan discussed with: Patient AWILDA CATALAN MD Jul 02, 2024 14:39
--- NOTE | 2024-07-02 15:27 | DVHPN2 ---
Consult Progress Note Subjective Other Systems: No cardiac complaints at time of assessment Objective vital signs Vital Sign Date Time Temp Pulse Resp B/P (MAP) Pulse Ox O2 Delivery O2 Flow Rate FiO2 07/02/24 12:30 97.9 99 18 132/66 (88) 96 97.9 07/02/24 08:00 Room Air* 0 21 Total Intake and Output 07/01/24 07/01/24 07/02/24 14:59 22:59 06:59 Intake Total 50 ml 120 ml 0 ml Output Total 1000 ml Balance 50 ml 120 ml -1000 ml medications Current Medications Medications Dose Ordered Sig/Efrain Route Start Time Stop Time Status Last Admin Dose Admin Ceftriaxone Sodium 50 ml @ 100 mls/hr DAILY@09 IV 06/26/24 09:00 07/02/24 09:00 100 MLS/HR Famotidine 20 mg DAILY IV 06/26/24 10:00 07/02/24 10:00 20 MG Hydralazine HCl 10 mg Q6HP PRN IV 06/26/24 04:00 Sodium Chloride 10 ml Q8HR IV 06/26/24 06:00 07/02/24 06:23 10 ML Acetaminophen/ Hydrocodone Bitart 1 tab Q4HP PRN PO 06/26/24 04:00 06/30/24 21:43 1 TAB Ondansetron HCl 4 mg Q4HP PRN IV 06/26/24 04:00 06/26/24 19:49 4 MG Docusate Sodium 100 mg BIDPRN PRN PO 06/26/24 04:00 06/27/24 10:09 100 MG Acetaminophen 650 mg Q6HP PRN PO 06/26/24 04:00 06/28/24 01:38 650 MG Morphine Sulfate 2 mg Q4HPRN PRN IV 06/26/24 04:00 06/30/24 08:55 2 MG Nitroglycerin 0.4 mg Q5MINP PRN SL 06/26/24 04:00 Morphine Sulfate 2 mg Q30M PRN IV 06/26/24 04:00 Memantine 5 mg DAILY PO 06/27/24 10:00 07/02/24 10:00 5 MG Metoprolol Succinate 25 mg DAILY PO 06/28/24 10:00 07/02/24 10:00 25 MG Amiodarone HCl 200 mg Q12HR PO 06/28/24 22:00 07/02/24 10:00 200 MG Doxycycline Monohydrate 100 mg Q12HR PO 06/29/24 22:00 07/02/24 10:00 100 MG Dextrose/Sodium Chloride 1,000 ml @ 50 mls/hr Q20H IV 06/30/24 19:30 06/30/24 20:29 50 MLS/HR Examination: GENERAL:Abnormal (Generalized weakness), LUNGS:Normal, CVS:Normal, SKIN:Abnormal (Large right thigh hematoma) laboratory and microbiology Laboratory Tests 07/02/24 10:37 Test 07/02/24 10:37 Range/Units Serum Glucose 98 74-106 mg/dL Problem List/Assessment/Plan Problem List/Assessment/Plan Large hematoma to right thigh Acute DVT of right femoral and popliteal veins Sepsis with pneumonia/influenza B Presence of biventricular ICD, [employer] Paroxysmal atrial fibrillation, now sinus tachycardia, on Pradaxa Hypertension Dementia Plan/Recommendation (Dr. Mejia): Patient seen and examined at bedside with . The patient was taken to the [facility]istics [facility] yesterday to undergo a embolization of right thigh hematoma. No embolization was performed at that time given that no extravasation was seen. We will continue to hold off on anticoagulation at this time and reassess daily. Patient currently has RAKESH bandage to right thigh hematoma. Initiate SCDs for DVT/VTE prophylaxis. Given that the patient also has an acute DVT, the patient may benefit from an IVC filter. Thank you for allowing us to care for this patient. Please call with any questions or concerns. This medical document was created using an electronic medical record system with voice recognition software and computerized dictation system. Although this document has been carefully reviewed, there might still be some phonetic and typographical errors. Occasional wrong-word or ``sound-alike substitutions may have occurred due to the inherent limitations of voice recognition software. These areas are purely typographical due to imperfections of the software programs and do not reflect any compromise in the patient's medical care. Please read the chart carefully and recognize, using context, where these substitutions have occurred. Plan discussed with: Patient Date of Service: Jul 02, 2024 Billing Provider: MYRA MEJIA MD Common Visit Codes: [id number] INP/OBS CARE(HIGH) PARADISE JARRETT ACCOUNTING ANALYST Jul 02, 2024 15:26
--- NOTE | 2024-07-02 15:40 | DVHDSRES ---
Discharge Summary Date of Admission Resident Creating Document: CHI CHISHOLM RESIDENT Jun 26, 2024 at 04:00 Date of Discharge: Jul 03, 2024 (Discharge was planned for July 02, 2024) Admitting Diagnosis Fall Wounds: No wound was present, mild sacral erythema Labs/Diagnostic Data: Laboratory Results Test 07/02/24 10:37 06/30/24 14:10 06/30/24 04:39 06/29/24 17:23 White Blood Count 17.7 10^3/uL (4.4-10.8) Red Blood Count 2.58 10^6/uL (4.0-5.20) Hemoglobin 8.2 g/dL (12.2-16.2) Hematocrit 24.9 % (36.0-46.0) Mean Corpuscular Volume 96.3 fL (80.0-100.0) Mean Corpuscular Hemoglobin 31.7 pg (28.0-32.0) Mean Corpuscular Hemoglobin Concent 32.9 g/dL (32.0-36.0) Red Cell Distribution Width 15.2 % (11.8-14.3) Platelet Count 200 10^3/uL (140-450) Mean Platelet Volume 9.8 fL (6.9-10.8) Neutrophils (%) (Auto) 83.0 % (37.0-80.0) Lymphocytes (%) (Auto) 3.5 % (10.0-50.0) Monocytes (%) (Auto) 13.2 % (0.0-12.0) Eosinophils (%) (Auto) 0.2 % (0.0-7.0) Basophils (%) (Auto) 0.1 % (0.0-2.0) Neutrophils # (Auto) 14.7 10 ^3/uL (1.6-8.6) Lymphocytes # (Auto) 0.6 10 ^3/uL (0.4-5.4) Monocytes # (Auto) 2.3 10 ^3/uL (0-1.3) Eosinophils # (Auto) 0 10 ^3/uL (0-0.8) Basophils # (Auto) 0 10 ^3/uL (0-0.2) Nucleated Red Blood Cells 0.1 % Sodium Level 143 mmol/L (136-145) Potassium Level 4.1 mmol/L (3.5-5.1) Chloride Level 112 mmol/L (98-107) Carbon Dioxide Level 19 mmol/L (20-31) Anion Gap 12 (5-15) Blood Urea Nitrogen 49 mg/dL (9-23) Creatinine 0.96 mg/dL (0.550-1.02) Glomerular Filtration Rate Calc 57 mL/min (>90) BUN/Creatinine Ratio 51.0 (10.0-20.0) Serum Glucose 98 mg/dL (74-106) Lactic Acid Level 1.3 mmol/L (0.4-2.0) Calcium Level 9.8 mg/dL (8.7-10.4) Creatine Kinase 1612 U/L (34-145) Prothrombin Time 13.5 sec (9.3-11.8) Prothrombin Time INR 1.31 (0.9-1.15) Activated Partial Thromboplast Time 34.6 SEC (24.5-34.5) Reticulocyte Count (auto) 1.84 % (0.5-1.5) Lactate Dehydrogenase 259 U/L (120-246) Ammonia < 10 umol/L (11-32) Test 06/29/24 17:00 06/27/24 08:50 06/26/24 20:03 06/26/24 09:52 Blood Gas Specimen Type Arterial Blood Gas Sample Site Left radial Blood Gas Patient Temperature 37.0 Arterial Blood Date Drawn [id number] Arterial Blood pH 7.459 (7.350-7.450) Arterial Blood Partial Pressure CO2 27.4 mmHg (32.0-45.0) Arterial Blood Partial Pressure O2 71.7 mmHg (83.0-108.0) Arterial Blood HCO3 19.0 mmol/L (21.0-28.0) Arterial Blood Oxygen Saturation 93.0 % (94.0-98.0) Arterial Blood Base Excess -3.5 mmol/L (-2.0-3.0) Arterial Blood Oxyhemoglobin 92.1 % (94.0-98.0) Arterial Blood Carboxyhemoglobin 0.7 % (0.5-1.5) Arterial Blood Methemoglobin 0.3 % (0.0-1.5) Willie Test Yes Blood Gas Total Hemoglobin 12.70 g/dL (12.0-16.0) Blood Gas Modality Room air FiO2 % 21.0 Magnesium Level 2.1 mg/dL (1.6-2.6) Total Bilirubin 1.0 mg/dL (0.2-1.0) Aspartate Amino Transferase (AST) 19 U/L (13-40) Alanine Aminotransferase (ALT) < 9 U/L (7-40) Alkaline Phosphatase 80 U/L (46-116) Total Protein 7.1 g/dL (5.7-8.2) Albumin 4.3 g/dL (3.2-4.8) Influenza Type A Antigen Negative (Negative) Influenza Type B Antigen Positive (Negative) SARS-CoV-2 Antigen (Rapid) Negative (NEGATIVE) Hemoglobin A1c 5.1 % A1C (<5.7) B-Type Natriuretic Peptide 79.46 pg/mL (0-100) Vitamin D 25-Hydroxy 43.7 ng/mL (30.0-100) Thyroid Stimulating Hormone (TSH) 1.80 uIU/mL (0.55-4.78) Test 06/25/24 20:22 Urine Color Colorless (Yellow) Urine Clarity Turbid (Clear) Urine pH 5.5 (5.0-9.0) Urine Specific [place] 1.013 (1.001-1.035) Urine Protein Negative (Negative) Urine Ketones Negative (Negative) Urine Blood Trace /uL (Negative) Urine Nitrite Negative (Negative) Urine Bilirubin Negative (Negative) Urine Urobilinogen Normal mg/dL (Negative) Urine Leukocyte Esterase 3+ /uL (Negative) Urine RBC 1 /hpf (0 - 4) Urine WBC 4 /hpf (0 - 5) Urine Squamous Epithelial Cells Few /hpf (<5) Urine Bacteria Few /hpf (None Seen) Urine Glucose Normal mg/dL (Normal) Other Laboratory Tests 07/02/24 10:37 Brief Hx & Hospital Course: This is a 88 years old female with past medical history of AFib, dementia and hypertension who presented to [facility] ED for an evaluation after mechanical fall. Patient reports feeling weakness, tripped and fall landing on her right shoulder with sustained right shoulder pain. initial CT head without contrast was no acute intracranial abnormality and workup for fracture was negative for dislocation or fracture. Acute hypoxic respiratory failure likely due to influenza B with superimposed community-acquired Gram-positive / Gram- negative pneumonia treated with IV ceftriaxone 1 g daily, doxycycline 100 mg p.o. b.i.d. and Tamiflu 30 mg b.i.d. Cardiology was consulted because of tachyarrhythmias. cardiology evaluated the patient and mentioned AV paced rhythm with underlying sinus tachycardia. A BiV-ICD interrogation revealed a normal function device with intermittent PMT episodes and a generator life of approximately 7.5 years. cardiology recommended beta laurita in addition to full anticoagulation. was consistent with UTI at urine bacterial culture revealed E coli and the patient was treated with IV ceftriaxone 1 g daily.Patient was complaining of leg pain and there was a large hematoma on the right proximal thigh, and peripheral pulses were palpable excluded the compartment syndrome. Surgery evaluated the patient and recommended to monitor H/ H, transfuse if hemoglobin drops and no obvious fluid collection that can be drained percutaneously at this time. CT angio of rt femur demonstrated Interval enlargement of the right thigh hematoma with a contrast blush seen on arterial phase imaging within the hematoma. Surgery consulted IR for possible embolization due to possible acute bleeding. IR recommended Patent right common femoral, superficial femoral, and profunda arteries. Visualization of muscular branches from the profunda artery in 2 projections without areas of contrast extravasation. Thus, no embolization was performed. Reconsulted Cardiology again and recommended discontinuing therapeutic Lovenox because of the large right proximal hematoma use and recommended IVC filter for future anticoagulation. Doppler scan of the lower limb also demonstrated acute DVT in the right femoral and popliteal vein. patient's vital is stable and no change of the hematemesis signs since yesterday and recent H&H trends were 10/32.2 and 8.2/24.9 and was transfused 1 unit PRBC 2 days ago. Patient wanted to transfer to the [facility] and medical social consultant was consulted regarding transfer to the [facility]. Physical examination on July 02, 2024: General Appearance: Alert, Oriented X3, Cooperative, No acute distress HEENT: Atraumatic, PERRLA, EOMI, Mucous membrane moist/pink Respiratory: Decreased breath sound bilaterally. Cardiovascular: Regular rate, Normal S1, Normal S2, No murmurs, no chest wall tenderness Abdominal: Normal bowel sounds, Soft, No tenderness, No hepatosplenomegaly, No masses Extremities: Large hematoma Rt proximal thigh Neuro: Bed bound, Normal speech, Strength at 4/5 X4 ext, Normal tone, Sensation intact, grossly intact cranial nerves. Psych/Mental Status: Mental status NL, Mood NL Discharge plan to [facility] was delayed. Goals of care discussed for 20 minutes; full code. Discussed with Dr. Adam. Consults/Reason for consult Cardiology, surgery and IR were consulted Operations or Procedures CLINICAL INDICATION: Right shoulder pain TECHNIQUE: XY R SHOULDER 2+ VIEW XRAY Comparison: None FINDINGS/IMPRESSION: : Bony demineralization. No definite acute fracture. Mild acromioclavicular and glenohumeral joint arthrosis. Visualized portions of the right lung are clear. Partially imaged right-sided multi lead pacemaker. Overlying soft tissues are intact CHEST RADIOGRAPH Indication: s/p mechanical fall Technique: Single frontal view of the chest was obtained COMPARISON: CHEST XRAY 1 VIEW on DOS: 02/07/22, CXR1 on DOS: 02/07/22 FINDINGS: Right chest AICD is re-identified. There is new left basilar infiltrate partially obscuring the left hemidiaphragm. There is central peribronchial thickening, stable. No pneumothorax. The heart is upper limits of normal in size. The right humeral head is high-riding consistent with significant rotator cuff tendinopathy. The bones are diffusely osteopenic. No acute displaced fractures are identified about the bony thorax. There is at least 1 old left rib fracture. IMPRESSION: 1. New left basilar pneumonia. 2. Chronic central peribronchial thickening re-identified. EXAM: CT HEAD WITHOUT CONTRAST HISTORY: S/P mechanical fall COMPARISON: None TECHNIQUE: Axial images were obtained and reformatted in coronal and sagittal planes. All CT scans at this medical facility are performed using dose modulation techniques as appropriate to a performed exam including the following: Automated exposure control was utilized; adjustment of the MA and/or KV according to patient size; and use of iterative reconstruction technique. CT Dose: CTDI volume is 53.58 mGy. Dose-length product is 1270.42 mGy*cm FINDINGS: Supratentorial Region: No evidence for large acute territorial ischemia. No intracranial hemorrhage is noted. Confluent white matter hypoattenuating foci are noted bilaterally, which typically reflect chronic microvascular ischemic changes. Posterior Fossa: No acute abnormality. Brainstem: Unremarkable. Sellar/Suprasellar Region: Unremarkable. Ventricles, Cisterns, Sulci: Prominent reflecting volume loss. Orbits: Unremarkable. Paranasal Sinuses: Unremarkable. Mastoid Air Cells: Unremarkable. Vasculature: Intracranial arterial calcified plaque formation noted. Bones/Soft Tissues: No acute abnormality. Other: None. IMPRESSION: 1. No acute intracranial process. 2. Moderate global cortical atrophy and chronic microvascular ischemic changes. PROCEDURE: Right radiographs. INDICATION: s/p fall TECHNIQUE: Frontal and oblique views of the right hip were obtained. COMPARISON: None FINDINGS: There is no evidence of fracture or dislocation. Bilateral hip replacements. The soft tissues are unremarkable. IMPRESSION: 1. No fracture or dislocation. Left lower extremity venous duplex Clinical History: To rule out DVT Comparison: US RT LOWER DVT on DOS: 06/30/24 Findings: Duplex Doppler evaluation of the deep venous system of the left lower extremity from the common femoral vein to the popliteal vein including color Doppler and spectral/pulsed waveform analysis was performed. The common femoral vein demonstrates appropriate compressibility and waveform variability. There is compressibility/patency of the great saphenous vein at the proximal thigh. The femoral vein demonstrates appropriate compressibility and waveform variability. The deep femoral vein demonstrates appropriate compressibility and waveform variability. The popliteal vein demonstrates appropriate compressibility and waveform variability. There is normal compressibility at the tibioperoneal trunk. Impression: No left femoropopliteal venous thrombosis. CLINICAL INDICATION: 88 years old, Female; Please rule out compartment syndrome/hematoma. TECHNIQUE: Noncontrast CT of the right femur was performed. Sagittal and coronal reformatted images are provided. COMPARISON: CT LOWER EXTREMITY NON JOINT RIGH on DOS: 07/12/23 CT Dose: CTDI volume is 12.39 mGy. Dose-length product is 1338.01 mGy*cm FINDINGS: No fracture or dislocation. There is a right total hip replacement. The components are well aligned and well seated. There is streak artifact from the hardware which limits the evaluation. Bones are demineralized. There is a mixed attenuation fluid collection in the anterior medial right thigh which measures 9.6 cm transverse by 7.7 cm AP by 14.4 cm craniocaudal. There is a hematocrit level within the collection. This spans the proximal half of the thigh in longitudinal dimension and is centered in the quadriceps muscle. There is subcutaneous edema. Stool throughout the colon. IMPRESSION: 1. Fairly large intramuscular hematoma in the right thigh centered within the quadriceps muscles measuring up 14.4 cm in craniocaudal dimension. Compartment syndrome should be excluded clinically. 2. Regional subcutaneous edema. 3. Status post total right hip replacement. No evidence of acute fracture or hardware complication. CT ABDOMEN AND PELVIS WITHOUT CONTRAST CLINICAL HISTORY: Large proximal rt thigh hematoma TECHNIQUE: Multiple contiguous axial images of the abdomen and pelvis without intravenous contrast. The images were reformatted degenerate coronal and sagittal reconstructions. All CT scans at this medical facility are performed using dose modulation techniques as appropriate to a performed exam including the following:Automated exposure control was utilized; adjustment of the MA and/or KV according to patient size; and use of iterative reconstruction technique. Radiation Dose Information: CT Dose: CTDI volume is 12 mGy. Dose-length product is 1338 mGy*cm Comparison: None FINDINGS: Evaluation of the abdomen and pelvis is limited without intravenous contrast. There are several small subcentimeter calculi in the lower pole of the right kidney. There is no evidence of left renal calculus. There is no hydronephrosis. There is a nonspecific 4.5 x 3.4 cm circumscribed fluid collection with smooth thin vallecillo and few internal calcifications in the perirenal space posterior and inferior to the left kidney Gallbladder is not adequately seen on current study. The liver, pancreas, adrenal glands, and spleen appear within normal limits. There is no free fluid or free air. The stomach grossly appears unremarkable. The small and large bowel loops demonstrate normal caliber. There are multiple diverticula distal colon without evidence of acute diverticulitis. There is moderate amount of stool throughout the colon, particularly rectum. Fecal impaction not excluded The visualized abdominal aorta and IVC appear within normal limits. There is large amount of streak artifact from bilateral hip arthroplasties limiting evaluation of the pelvis and proximal lower extremities. Visualized bladder grossly appears within normal limits. Partial visualization of a postmenopausal uterus.. There is no gross pelvic fluid collection. There is a 3.2 cm cystic structure in the left pelvis likely an ovarian cyst There is partial visualization of moderate size intramuscular hematoma in the medial proximal right thigh. Lung bases are clear. There is no acute osseous abnormality. CT CT ANGIO R LOWER EXT INDICATION: RIGHT PROXIMAL THIGH HEMATOMA EXAM DATE: 07/01/2024 01:08 PM COMPARISON: 06/30/24 RADIATION DOSE: CTDIvol: 3.95 mGy, DLP: 627.69 mGy*cm PROCEDURE: CT angiographic images were obtained of the 3.95 lower extremity. Coronal and sagittal reconstructions were created. FINDINGS: Common femoral artery: Patent . Superficial femoral artery: Patent . Profunda artery: Patent . Popliteal artery: Patent . Anterior tibial artery: Patent . Posterior tibial artery: Patent . Peroneal artery: Patent . Hip arthroplasty material creates beam hardening artifact which limits evaluation. Interval enlargement of the right thigh hematoma with a contrast blush seen on arterial phase imaging. Large fecal ball is noted in the rectum. IMPRESSION: 1. Interval enlargement of the right thigh hematoma with a contrast blush seen on arterial phase imaging within the hematoma. Critical Result: Active Bleeding XY FLUOROGUIDANCE FOR NEEDLE PLAC, HISTORY: Large right thigh hematoma with active extravasation seen on CT angiogram. PROCEDURE: Informed consent was obtained. The patient was placed on the fluoroscopic table in supine position. The left groin was prepped with chlorhexadine which was allowed to dry and draped in sterile fashion. Time out was performed. IV sedation and 1% Lidocaine were administered. The right common femoral artery was accessed using a micropuncture set and over a guide wire, a 6 Fr vascular sheath was placed. Then using the Chadwick catheter and glide advantage wire, the right common femoral artery was accessed. The catheter was then repositioned into the right profunda artery and angiograms were performed in 2 projections. No contrast extravasation was visualized. The catheter was removed and Angioseal device was used for hemostasis. No immediate complication was identified. DAP 434 FLUOROSCOPY TIME: 5.5 minutes. CONTRAST USED: 30 mL SEDATION: Dr. Sirisha Jon was personally responsible for the administration of moderate sedation during the procedure performed, including the use of an independent trained observer who had no other duties during the procedure. The drugs utilized were IV fentanyl and versed (see nursing log for details). The total time of supervision by the attending physician was approximately 45 minutes. FINDINGS: Tortuous aorta visualized. Patent right common femoral, superficial femoral, and profunda arteries. Visualization of muscular branches from the profunda artery without areas of contrast extravasation. Thus, no embolization was performed. IMPRESSION: Patent right common femoral, superficial femoral, and profunda arteries. Visualization of muscular branches from the profunda artery in 2 projections without areas of contrast extravasation. Thus, no embolization was performed. Plan: left leg straight for 2 hours. Condition at Discharge: Guarded Final Diagnosis/Problems List # Acute DVT of Rt leg # Large hematoma in proximal rt thigh # Acute hypoxic respiratory failure likely due to community-acquired Gram-positive / Gram-negative pneumonia # S/P mechanical fall # S/P AICD on rt side # Hypercalcemia likely due to dehydration # Paroxysmal atrial fibrillation with RVR and secondary hypercoagulable state # Acute cystitis # Possible Alzheimer's dementia # Hypertensive heart disease Discharge Disposition: Acute Care Facility (Discharge was planned to [facility] but was delayed) Discharge Instruct/Medications Diet: Cardiac 2g Na,low cholest Activity: No Restrictions, As Tolerated Follow Up/Referral: Patient is being transferred to [facility] Medications: Continue IV antibiotics and oseltamivir 75 mg b.i.d. for 2 more doses. Discharge Statement: "Patient was advised to return to the ER or call 911 if any headaches, dizziness, shortness of breath, chest pain, abdominal pain, bleeding, fevers, or worsening of medical condition. Patient was counseled about treatment plan, medications, possible side effects, patientverbalized understanding. All questions were answered to the best of my ability. This discharge took greater then 30 minutes in planning, reviewing documentation, counseling the patient, and discussing with other team members." ASSESSMENT ASSESSMENT Assessment # Acute DVT of Rt leg # Large hematoma in proximal rt thigh # Acute hypoxic respiratory failure likely due to community-acquired Gram- positive / Gram-negative pneumonia # S/P mechanical fall # S/P AICD on rt side # Hypercalcemia likely due to dehydration # Paroxysmal atrial fibrillation with RVR and secondary hypercoagulable state # Acute cystitis # Possible Alzheimer's dementia # Hypertensive heart disease Addendum Addendum Addendum I was physically present for the lyons portions of the service provided to patient by THE RESIDENT. I have reviewed the documentation, discussed the case with resident and agree with the resident's documentation except as noted. Also the patient's clinical case was discussed with the patient's nurse. This medical document was created using an electronic medical record system with computerized dictation system. Although this document has been carefully reviewed, there might still be some phonetic and typographical errors. These areas are purely typographical due to imperfections of the software programs, and do not reflect any compromise in the patient's medical care. Late signature. Date of Service: Jul 02, 2024 Billing Provider: DAVINA ADAM MD Common Visit Codes: [id number] INP/OBS CARE(HIGH) Secondary Visit Codes: [id number] CARE PLAN 30 MINUTES (20 minutes) CHI CHISHOLM Jul 02, 2024 15:40 DAVINA ADAM MD Jul 03, 2024 19:30
[2024-07-03] VITALS (9 sets, daily range): BP systolic 106–122; BP diastolic 31–64; PULSE 66–95; RESP 15–18; TEMP 97–98.4; O2SAT 90–98
[2024-07-03 05:48] LABS: Eosinophils # (auto) 0.1 10 ^3/uL (0-0.8); Lymphocytes # (auto) 0.6 10 ^3/uL (0.4-5.4); Mean Corpuscular Hgb Conc. 32.7 g/dL (32.0-36.0); Monocytes # (auto) 2.3 10 ^3/uL (0-1.3); Monocytes % (auto) 12.8 % (0.0-12.0)
[2024-07-03 05:49] LABS: Basophils # (auto) 0.1 10 ^3/uL (0-0.2); Basophils % (auto) 0.3 % (0.0-2.0); Eosinophils % (auto) 0.8 % (0.0-7.0); Hematocrit 24.3 % (36.0-46.0); Hemoglobin 7.9 g/dL (12.2-16.2); Lymphocytes % (auto) 3.3 % (10.0-50.0); Mean Corpuscular Hemoglobin 31.7 pg (28.0-32.0); Neutrophils # (auto) 15.1 10 ^3/uL (1.6-8.6); Neutrophils % (auto) 82.8 % (37.0-80.0); Nucleated Red Blood Cells % 0.3 %; Platelet Count (auto) 225 10^3/uL (140-450); Red Cell Distribution Width 14.9 % (11.8-14.3); White Blood Cell 18.2 10^3/uL (4.4-10.8)
[2024-07-03 05:57] LABS: Potassium 3.8 mmol/L (3.5-5.1)
[2024-07-03 05:58] LABS: Anion Gap 10 (5-15); Calcium 10.2 mg/dL (8.7-10.4); Carbon Dioxide 22 mmol/L (20-31)
[2024-07-03 06:03] LABS: BUN/Creatinine Ratio 60.2 (10.0-20.0); Glucose 87 mg/dL (74-106)
[2024-07-03 06:10] LABS: Blood Urea Nitrogen 53 mg/dL (9-23); Chloride 113 mmol/L (98-107); Sodium 145 mmol/L (136-145)
--- NOTE | 2024-07-03 13:22 | DVHPN2 ---
Consult Progress Note Subjective Other Systems: No cardiac events reported at time of assessment. Objective vital signs Vital Sign Date Time Temp Pulse Resp B/P (MAP) Pulse Ox O2 Delivery O2 Flow Rate FiO2 07/03/24 10:36 87 112/60 07/03/24 08:30 97.8 16 91 97.8 07/03/24 08:15 Room Air* 0 21 Total Intake and Output 07/02/24 07/02/24 07/03/24 15:00 23:00 07:00 Intake Total 50 ml 380 ml 234 ml Balance 50 ml 380 ml 234 ml medications Current Medications Medications Dose Ordered Sig/Efrain Route Start Time Stop Time Status Last Admin Dose Admin Ceftriaxone Sodium 50 ml @ 100 mls/hr DAILY@09 IV 06/26/24 09:00 07/03/24 10:43 100 MLS/HR Famotidine 20 mg DAILY IV 06/26/24 10:00 07/03/24 10:43 20 MG Hydralazine HCl 10 mg Q6HP PRN IV 06/26/24 04:00 Sodium Chloride 10 ml Q8HR IV 06/26/24 06:00 07/03/24 06:00 10 ML Acetaminophen/ Hydrocodone Bitart 1 tab Q4HP PRN PO 06/26/24 04:00 06/30/24 21:43 1 TAB Ondansetron HCl 4 mg Q4HP PRN IV 06/26/24 04:00 06/26/24 19:49 4 MG Docusate Sodium 100 mg BIDPRN PRN PO 06/26/24 04:00 06/27/24 10:09 100 MG Acetaminophen 650 mg Q6HP PRN PO 06/26/24 04:00 06/28/24 01:38 650 MG Morphine Sulfate 2 mg Q4HPRN PRN IV 06/26/24 04:00 06/30/24 08:55 2 MG Nitroglycerin 0.4 mg Q5MINP PRN SL 06/26/24 04:00 Morphine Sulfate 2 mg Q30M PRN IV 06/26/24 04:00 Memantine 5 mg DAILY PO 06/27/24 10:00 07/03/24 10:37 5 MG Metoprolol Succinate 25 mg DAILY PO 06/28/24 10:00 07/03/24 10:36 25 MG Amiodarone HCl 200 mg Q12HR PO 06/28/24 22:00 07/03/24 10:37 200 MG Doxycycline Monohydrate 100 mg Q12HR PO 06/29/24 22:00 07/03/24 10:36 100 MG Dextrose/Sodium Chloride 1,000 ml @ 50 mls/hr Q20H IV 06/30/24 19:30 07/03/24 04:16 50 MLS/HR Examination: GENERAL:Abnormal (Generalized weakness), LUNGS:Normal, CVS:Normal, SKIN:Abnormal (Large hematoma to right upper thigh), NEURO:Abnormal (Confusion) laboratory and microbiology Laboratory Tests 07/03/24 05:14 Test 07/03/24 05:14 Range/Units Serum Glucose 87 74-106 mg/dL Problem List/Assessment/Plan Problem List/Assessment/Plan Large hematoma to right thigh Acute DVT of right femoral and popliteal veins Sepsis with pneumonia/influenza B Presence of biventricular ICD, [place] scientific Paroxysmal atrial fibrillation, now sinus tachycardia, on Pradaxa Hypertension Dementia Plan/Recommendation (Dr. Mejia): Case discussed with . The patient remains with a stable right thigh hematoma. RAKESH bandage in place. Given anemia, we will continue to hold off on anticoagulation and reassess on daily basis. Continue SCDs for DVT/VTE prophylaxis. Given that the patient also has an acute DVT, the patient may benefit from an IVC filter in the future. Patient is pending transportation to [facility]. Thank you for allowing us to care for this patient. Please call with any questions or concerns. This medical document was created using an electronic medical record system with voice recognition software and computerized dictation system. Although this document has been carefully reviewed, there might still be some phonetic and typographical errors. Occasional wrong-word or ``sound-alike substitutions may have occurred due to the inherent limitations of voice recognition software. These areas are purely typographical due to imperfections of the software programs and do not reflect any compromise in the patient's medical care. Please read the chart carefully and recognize, using context, where these substitutions have occurred. Plan discussed with: Patient Date of Service: Jul 03, 2024 Billing Provider: MYRA MEJIA MD Common Visit Codes: [id number] INP/OBS CARE(HIGH) PARADISE JARRETT [employer] Jul 03, 2024 13:22
[2024-07-03 15:05] LABS: Hematocrit 25.3 % (36.0-46.0); Hemoglobin 8.3 g/dL (12.2-16.2)
--- NOTE | 2024-07-03 15:25 | DVHPNRES ---
Progress Note Date Seen: Jul 03, 2024 Resident Creating Document: HITESH LUA RESIDENT Has the PT tested + for MRSA If YES, has PT been informed?: No Medical Necessity Reason Pt with a Central, PICC or Fol: Yes Subjective Review of Systems This is a 88 years old female with past medical history of AFib, dementia and hypertension who presented to [facility] ED for an evaluation after mechanical fall. Patient reports feeling weakness, tripped and fall landing on her right shoulder with sustained right shoulder pain. initial CT head without contrast was no acute intracranial abnormality and workup for fracture was negative for dislocation or fracture. Acute hypoxic respiratory failure likely due to influenza B with superimposed community-acquired Gram-positive / Gram- negative pneumonia treated with IV ceftriaxone 1 g daily, doxycycline 100 mg p.o. b.i.d. and Tamiflu 30 mg b.i.d. Cardiology was consulted because of tachyarrhythmias. cardiology evaluated the patient and mentioned AV paced rhythm with underlying sinus tachycardia. A BiV-ICD interrogation revealed a normal function device with intermittent PMT episodes and a generator life of approximately 7.5 years. cardiology recommended beta laurita in addition to full anticoagulation. was consistent with UTI at urine bacterial culture revealed E coli and the patient was treated with IV ceftriaxone 1 g daily.Patient was complaining of leg pain and there was a large hematoma on the right proximal thigh, and peripheral pulses were palpable excluded the compartment syndrome. Surgery evaluated the patient and recommended to monitor H/ H, transfuse if hemoglobin drops and no obvious fluid collection that can be drained percutaneously at this time. CT angio of rt femur demonstrated Interval enlargement of the right thigh hematoma with a contrast blush seen on arterial phase imaging within the hematoma. Surgery consulted IR for possible embolization due to possible acute bleeding. IR recommended Patent right common femoral, superficial femoral, and profunda arteries. Visualization of muscular branches from the profunda artery in 2 projections without areas of contrast extravasation. Thus, no embolization was performed. Reconsulted Cardiology again and recommended discontinuing therapeutic Lovenox because of the large right proximal hematoma use and recommended IVC filter for future anticoagulation. Doppler scan of the lower limb also demonstrated acute DVT in the right femoral and popliteal vein. patient's vital is stable and no change of the hematemesis signs since yesterday and recent H&H trends were 10/32.2 and 8.2/24.9 and was transfused 1 unit PRBC 2 days ago. Patient wanted to transfer to the [place] and social worker clinical was consulted regarding transfer to the [place]. Patient seen and examined at bedside. Blood pressure and other vitals has been stable so far. Hemoglobin came back at 7.9 and repeated hemoglobin increased to 8.3. Right thigh was evaluated today which is still tense in a similar size than days before but patient complains of less pain with this point. We discussed with social service that patient is stable to transfer to [place]. Spoke with [place] financial representative and explained and updated on current plan of care. I explained that aside from low hemoglobin patient is stable to transfer. They are analyzed in the case for possible transfer today. ROS Constitutional: Reports diffuse pain on bilateral thighs. Denies weight loss, fever and chills. HEENT: Denies changes in vision and hearing. Respiratory: Denies shortness of breath and cough Cardiovascular: Denies chest discomfort or palpitations GI: Denies abdominal pain, nausea, vomiting and diarrhea. : Denies dysuria and urinary frequency. Musculoskeletal: Denies myalgias and joint pain Skin: Denies rash and pruritus. Neurological: Denies dizziness, headache, vision or hearing problems Objective vital signs Vital Sign Date Time Temp Pulse Resp B/P (MAP) Pulse Ox O2 Delivery O2 Flow Rate FiO2 07/03/24 14:25 97.8 95 18 122/56 (78) 93 97.8 07/03/24 08:15 Room Air* 0 21 Total Intake and Output 07/02/24 07/02/24 07/03/24 15:00 23:00 07:00 Intake Total 50 ml 380 ml 234 ml Balance 50 ml 380 ml 234 ml medications Current Medications Medications Dose Ordered Sig/Efrain Route Start Time Stop Time Status Last Admin Dose Admin Ceftriaxone Sodium 50 ml @ 100 mls/hr DAILY@09 IV 06/26/24 09:00 07/03/24 10:43 100 MLS/HR Famotidine 20 mg DAILY IV 06/26/24 10:00 07/03/24 10:43 20 MG Hydralazine HCl 10 mg Q6HP PRN IV 06/26/24 04:00 Sodium Chloride 10 ml Q8HR IV 06/26/24 06:00 07/03/24 06:00 10 ML Acetaminophen/ Hydrocodone Bitart 1 tab Q4HP PRN PO 06/26/24 04:00 06/30/24 21:43 1 TAB Ondansetron HCl 4 mg Q4HP PRN IV 06/26/24 04:00 06/26/24 19:49 4 MG Docusate Sodium 100 mg BIDPRN PRN PO 06/26/24 04:00 06/27/24 10:09 100 MG Acetaminophen 650 mg Q6HP PRN PO 06/26/24 04:00 06/28/24 01:38 650 MG Morphine Sulfate 2 mg Q4HPRN PRN IV 06/26/24 04:00 06/30/24 08:55 2 MG Nitroglycerin 0.4 mg Q5MINP PRN SL 06/26/24 04:00 Morphine Sulfate 2 mg Q30M PRN IV 06/26/24 04:00 Memantine 5 mg DAILY PO 06/27/24 10:00 07/03/24 10:37 5 MG Metoprolol Succinate 25 mg DAILY PO 06/28/24 10:00 07/03/24 10:36 25 MG Amiodarone HCl 200 mg Q12HR PO 06/28/24 22:00 07/03/24 10:37 200 MG Doxycycline Monohydrate 100 mg Q12HR PO 06/29/24 22:00 07/03/24 10:36 100 MG Dextrose/Sodium Chloride 1,000 ml @ 50 mls/hr Q20H IV 06/30/24 19:30 07/03/24 04:16 50 MLS/HR Examination Physical Examination General: Patient alert and oriented in person, place and time. Patient following commands. HEENT: Normocephalic, atraumatic, moist mucous membranes Respiratory/pulmonary: Clear lungs bilaterally, no associated crackles or wheezes. Cardiovascular: Normal heart sounds S1 and S2 with no associated murmurs; AICD in place Abdomen: Abdomen nondistended, there is no pain to palpation in any of the abdominal quadrants, no palpable masses. Extremities: There is a large hematoma on the right thigh which has not changed recently in size or color. Patient has pain to palpation to bilateral thighs. Peripheral Pulses: 3+ Radial (R). 3+ Radial (L). 3+ Dorsalis pedis (R). 3+ Dorsalis pedis(L) Skin: No rashes or pruritus, there is no sacral edema present at this time. Neurological: Intact cranial nerves with no focal neurologic deficits laboratory and microbiology Laboratory Tests 07/03/24 14:30 07/03/24 05:14 Test 07/03/24 05:14 Range/Units Serum Glucose 87 74-106 mg/dL Microbiology Date/Time Source Procedure Growth Status 06/25/24 20:22 Voided Urine Urine Culture - Final Escherichia coli Complete Labs and/or images reviewed: Labs reviewed by me, Image(s) reviewed by me Problem List/Assessment/Plan Problem List/Assessment/Plan Assessment/Plan Acute DVT of right popliteal and femoral veins Large hematoma in proximal right thigh - Lower extremity doppler showed Acute DVT involving the right femoral and popliteal veins. Large hematoma in the medial aspect of the proximal right thigh - CT Rt femur demonstrated fairly large intramuscular hematoma in the right thigh centered within the quadriceps muscles measuring up 14.4 cm in craniocaudal dimension and regional subcutaneous edema. - Surgery evaluated the patient and recommended monitor H/H and transfuse as necessary. If the hemoglobin drops further concerning for possible active bleeding, we will get a CT angio. There is no obvious fluid collection that can be drained percutaneously at this time. - Hold therapeutic Lovenox due to the bleeding. - H/H: 04/06.2, 1 unit PRBC transfused - CT angio of rt femur demonstrated Interval enlargement of the right thigh hematoma with a contrast blush seen on arterial phase imaging within the hematoma. - Surgery consulted IR for possible embolization due to possible acute bleeding. - IR recommended Patent right common femoral, superficial femoral, and profunda arteries. Visualization of muscular branches from the profunda artery in 2 projections without areas of contrast extravasation. Thus, no embolization was performed. - Reconsulted Cardiology again and recommended discontinuing therapeutic Lovenox because of the large right proximal hematoma use and recommended IVC filter for future anticoagulation -patient was re-evaluated today on 07/03/24. Right thigh hematoma is unchanged in size or color. The patient still reports pain bilateral thighs. Acute hypoxic respiratory failure likely due to community-acquired Gram-positive / Gram-negative pneumonia S/P mechanical fall S/P AICD on rt side - Chest xray demonstrated new left basilar pneumonia and chronic central peribronchial thickening - IV ceftriaxone 1 g daily and IV doxycycline 100 mg b.i.d - CT head revealed no acute intracranial abnormality and moderate global cortical atrophy and chronic microvascular ischemic changes - Rt shoulder xray demonstrated Bony demineralization. No definite acute fracture. Mild acromioclavicular and glenohumeral joint arthrosis - Cardiology evaluated the patient and mentioned AV paced rhythm with underlying sinus tachycardia - A BiV-ICD interrogation revealed a normal function device with intermittent PMT episodes and a generator life of approximately 7.5 years - Reconsulted Cardiology again and recommended discontinuing therapeutic Lovenox because of the large right proximal hematoma use and recommended IVC filter for future anticoagulation Acute normocytic normochromic anemia likely due to bleeding (right thigh hematoma) -hemoglobin today early in the a.m. was 7.9, repeated hb was 8.3 -Continue monitoring Hb and Hct Hypercalcemia likely due to dehydration - ultrasound of the bladder revealed retention. - IV normal saline bolus 500 mL. Paroxysmal atrial fibrillation with RVR and secondary hypercoagulable state [id number] score >4 - Metoprolol succinate XL 25 mg p.o. daily - Amiodarone 200 mg PO b.i.d - Echo revealed EF 55%with moderate to severe aortic stenosis and needs follow up echo in six-month to assess the degree of stenosis. Acute cystitis - U/A consistent with UTI - Urine c/s revealed E.coli. - IV ceftriaxone I gm daily. 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 daily Hypertensive heart disease - Lisinopril 2.5 mg p.o. daily Patient is stable overall to transferred to [place]. Spoke with [facility] and [place] financial representative and explained current plan of care and updated on current vitals. Discharge summary documented on July 02, 2024. Plan discussed with Dr. Adam Plan discussed with: Patient, Other (RN) My Orders My Orders Orders - HITESH LUA RESIDENT Procedure Category Date Status Time * Director Corporate Communications CONS 07/03/24 Transmitted Consult Addendum Addendum Addendum I was physically present for the lyons portions of the service provided to patient by THE RESIDENT. I have reviewed the documentation, discussed the case with resident and agree with the resident's documentation except as noted. Also the patient's clinical case was discussed with the patient's nurse. This medical document was created using an electronic medical record system with computerized dictation system. Although this document has been carefully reviewed, there might still be some phonetic and typographical errors. These areas are purely typographical due to imperfections of the software programs, and do not reflect any compromise in the patient's medical care. Late signature. Date of Service: Jul 03, 2024 Billing Provider: DAVINA ADAM MD Common Visit Codes: 82503-BJO/OBS DISCH DAY >30min HITESH LUA RESIDENT Jul 03, 2024 15:25 DAVINA ADAM MD Jul 04, 2024 05:26
== END 2024-07-03 20:52 | disposition short-term general hospital (02) | DRG 177 ==
LOC: EDBD 17:17 → EDUNIT# 17:17 → ER 17:17 → TELE 06-26 04:00 → TELE-WESTW 06-26 23:33
PROVIDERS: ADMIT Student in an Organized Health Care Education/Training Program; ATTEND Student in an Organized Health Care Education/Training Program
PROC: 0HQBXZZ Repair Right Upper Arm Skin, External Approach (ICD-10-PCS; principal; 2024-06-26)
PROC: 4B02XTZ Measurement of Cardiac Defibrillator, External Approach (ICD-10-PCS; 2024-06-27)
PROC: 30233N1 Transfusion of Nonautologous Red Blood Cells into Peripheral Vein, Percutaneous Approach (ICD-10-PCS; 2024-06-30)
PROC: 05HB33Z Insertion of Infusion Device into Right Basilic Vein, Percutaneous Approach (ICD-10-PCS; 2024-07-01)
PROC: B54MZZA Ultrasonography of Right Upper Extremity Veins, Guidance (ICD-10-PCS; 2024-07-01)
PROC: B41F1ZZ Fluoroscopy of Right Lower Extremity Arteries using Low Osmolar Contrast (ICD-10-PCS; 2024-07-01)
DX: J10.08 Influenza due to other identified influenza virus with other specified pneumonia (principal); J96.01 Acute respiratory failure with hypoxia; J15.69 Pneumonia due to other Gram-negative bacteria; N30.00 Acute cystitis without hematuria; I82.411 Acute embolism and thrombosis of right femoral vein; I82.431 Acute embolism and thrombosis of right popliteal vein; D68.69 Other thrombophilia; J15.9 Unspecified bacterial pneumonia; Z20.822 Contact with and (suspected) exposure to COVID-19; G30.9 Alzheimer's disease, unspecified; F02.80 Dementia in other diseases classified elsewhere, unspecified severity, without behavioral disturbance, psychotic disturbance, mood disturbance, and anxiety; I10 Essential (primary) hypertension; I48.0 Paroxysmal atrial fibrillation; S41.111A Laceration without foreign body of right upper arm, initial encounter; E86.0 Dehydration; E83.52 Hypercalcemia; I11.9 Hypertensive heart disease without heart failure; S70.11XA Contusion of right thigh, initial encounter; Z88.2 Allergy status to sulfonamides; Z79.02 Long term (current) use of antithrombotics/antiplatelets; Z82.0 Family history of epilepsy and other diseases of the nervous system; Z95.0 Presence of cardiac pacemaker; W01.0XXA Fall on same level from slipping, tripping and stumbling without subsequent striking against object, initial encounter; Y93.89 Activity, other specified; Y92.89 Other specified places as the place of occurrence of the external cause; Y99.8 Other external cause status
CPT/HCPCS: 36415; 36600; 70450; 71045; 73030; 73502; 73700; 73706; 74176; 75710; 76857; 76937; 77002; 80048; 80053; 81001; 82140; 82306; 82550; 82805; 83036; 83605; 83615; 83735; 83880; 84443; 85014; 85018; 85025; 85045; 85610; 85730; 86850; 86900; 86901; 86920; 87086; 87088; 87186; 87426; 87804; 93005; 93306; 93971; 96365; 96375; 97110; 97163; 99152; 99291; C1894; G0378; G9035; J2250; J2405; J3490; Q9967